=== PATIENT | female | born 1965 | race Caucasian/White ===

== ENCOUNTER → 2018-07-13 09:55 | Outpatient (CLI) | payer BC, SELFPAY ==
[2018-07-13 12:26] LABS: Anion Gap 10 (5-15); BUN 15 mg/dL (7-18); BUN/Creat Ratio 22.2 RATIO (10-20); Calcium,Total 9.4 mg/dL (8.5-10.1); Chloride 103 mmol/L (98-107); Creatinine, Serum 0.68 mg/dL (0.55-1.02); EST Glomerular Filtration Rate 97 mL/min (>60); Est Glom Filt Rate - Afr Amer 117 mL/min (>60); Glucose 90 mg/dL (74-106); Potassium 4.1 mmol/L (3.5-5.1); Sodium Level 143 mmol/L (136-145)
== END ==
PROVIDERS: Family Provider Family Medicine; PCP Family Medicine; Visit Provider Family Medicine
DX: I10 Essential (primary) hypertension (principal)
CPT/HCPCS: 36415; 80048

== ENCOUNTER → 2018-10-29 08:35 | Outpatient (CLI) | payer BC, SELFPAY ==
--- NOTE | 2018-10-29 08:38 | BI_ITS ---
MAMMOGRAPHY - BILATERAL SCREENING REASON FOR EXAM: Female, 53 years old. Routine annual screening examination. PERTINENT HISTORY: Non-contributory. TECHNIQUE: Digital bilateral breast shaan (3D mammographic acquisition) in the CC and MLO projections. 2-D mediolateral oblique (MLO) and craniocaudad (CC) views of both breasts were obtained. CAD: Full Field Digital Mammography with Computer Added Detection was performed. COMPARISON: Comparison is made with prior study dated September 24, 2017 and September 20, 2016. FINDINGS: Breast Composition: The breasts are heterogeneously dense, which may obscure small masses. There are no dominant masses or suspicious calcifications. Small bilateral benign-appearing axillary lymph nodes. No other significant abnormalities are identified. There has been no significant change since the prior study. BI/SCREENING MAMM (CAD), BILAT IMPRESSION: Stable bilateral screening mammogram. Yearly follow-up mammogram recommended. (A) ASSESSMENT CATEGORY: BIRADS Category 2: Benign. A letter regarding these results will be sent to the patient by the facility within 30 days. Approximately 10% of breast cancers are not detected by mammography. A normal mammogram should not delay biopsy of a clinically suspicious abnormality. [id number] Electronically Signed: Logan Mccormack MD at 9:40 EST Tel [phone], Service support ,
--- OUTSIDE RECORDS SUMMARY | 2018-12-15 01:48 | XMS RPT_ITS ---
:1965 Author Organization OHIP Support Name Relationship Address Phone PORTS, COLE Unavailable [address] + [place] [address] SANTANA, RUPERT Unavailable [address] + [place] [address] UE Unavailable Unavailable Unavailable PORTS, COLE Unavailable [address] + [place] [address] SANTANA, RUPERT Unavailable [address] + [place] [address] UE Unavailable Unavailable Unavailable PORTS, COLE Unavailable [address] + [place] [address] SANTANA, RUPERT Unavailable [address] + [place] [address] UE Unavailable Unavailable Unavailable PORTS, COLE Unavailable [address] + [place] [address] SANTANA, RUPERT Unavailable [address] + [place] [address] UE Unavailable Unavailable Unavailable PORTS, COLE Unavailable [address] + [place] [address] SANTANA, RUPERT Unavailable [address] + [place] [address] UE Unavailable Unavailable Unavailable PORTS, COLE Unavailable [address] + [place] [address] SANTANA, RUPERT Unavailable [address] + [place] [address] UE Unavailable Unavailable Unavailable PORTS, COLE Unavailable [address] + [place] [address] SANTANA, RUPERT Unavailable [address] + [place] [address] UE Unavailable Unavailable Unavailable Care Team Providers Name Role Phone Gerry, Christiana Attending Unavailable Jolliff, Jennifer Primary Care Unavailable Gerry, Christiana Attending Unavailable [place], Christiana Referring Unavailable Jolliff, Jennifer Primary Care Unavailable Gerry, Christiana Attending Unavailable Jolliff, Jennifer Referring Unavailable Robotham, Ashlyn Attending Unavailable Gerry, Christiana Referring Unavailable Robotham, Ashlyn Attending Unavailable Robotham, Ashlyn Referring Unavailable Jolliff, Jennifer Primary Care Unavailable Robotham, Ashlyn Attending Unavailable Robotham, Ashlyn Referring Unavailable Jolliff, Jennifer Primary Care Unavailable Robotham, Ashlyn Consulting Unavailable Jolliff, Jennifer Attending Unavailable Jolliff, Jennifer Primary Care Unavailable PROBLEMS PROBLEMS DATE TYPE CONDITION / CODE ATTENDING STATUS SOURCE 11/13/2018 Unknown N63.20 - Cherelle Active [place] Unspecified lump Ashlyn [facility] in the left Hospital breast, Repository unspecified quadrant / N63.20(ICD-10) PROCEDURES PROCEDURES No Procedure Records FoundRESULTS RESULTS OPERATIVE REPORT Observed: 11/13/2018 Status: F Source: [place] 12:40 PM [facility] REPOSITORY [facility] Medical Records Department [address] [place] [address] Operative Report 11/13/18 1020 MR#: [id number] Acct: [id number] Name: NAHOMY DILLON Rep #: [id number] : 1965 53 From: Ashlyn Villarreal MD PCP: Jennifer Colon MD Status: REG CLI Y Location: OPUS Operative Report Date of Procedure: 11/13/18 Procedure: ultrasound-guided core biopsy Indications: 53 year-old female with hypoechoic nodule at 8:00 in the left breast 5 centimeters from the nipple. Risk benefits were discussed the patient and she elected to proceed with ultrasound guided core biopsy with clip placement Description of procedure: Patient was brought into the ultrasound room in the left breast was marked. A timeout was completed verifying correct patient, procedure, site, specially, prior to beginning procedure. The left breast was prepped and draped in usual sterile fashion and using local anesthesia was obtained with 1% lidocaine with epi. The lesion was located with the ultrasound. Small incision was made with 11 blade to introduced the mammotome through the skin. Under ultrasound guidance multiple core samples were obtained using then 13-gauge mammotome and sent in formalin for pathology. The mammotome mammostar clip was then deployed into the biopsy cavity under ultrasound guidance and a picture was taken. Upon completion procedure hemostasis was obtained and a Steri-Strip and OpSite were placed. Patient was then taken to the mammography suite for clip verification. The clip was verified just posterior to biopsy site on CC view. The patient tolerated the procedure well and was discharged from the breast imaging department good condition. complications: none 11/13/18 1240 <Electronically signed by Ashlyn Villarreal MD> Date Ashlyn Villarreal MD CC: Jennifer Colon MD; Ashlyn Villarreal MD Signed US BREAST BIOPSY Observed: 11/13/2018 Status: F Source: [place] 1ST LESION 9:28 AM [facility] REPOSITORY [facility] Imaging Services [address] [place] [address] US Breast Biopsy 1st Lesion MR#: [id number] Acct: [id number] Name: NAHOMY DILLON Rep #: [id number] : 1965 F 53 From: Logan Mccormack MD PCP: Jennifer Colon MD Status: REG CLI Study: US Breast Biopsy 1st Lesion Date of Exam: 11/13/18 Exam# [id number] Ordering Dr: Ashlyn Villarreal MD ULTRASOUND GUIDED CORE BIOPSY REASON FOR EXAM: Female, 53 years old. Hypoechoic nodule in the left breast at the 8:00 position of the breast at 5 cm from the nipple. PERTINENT HISTORY: Non-contributory. COMPARISON: Comparison is made with prior ultrasound dated October 30, 2018. TECHNIQUE: (All elements of maximal sterile barrier technique followed, including US elements as applicable) Upon arrival to the breast imaging department the patient's identification was confirmed and the LEFT breast was marked according to time-out protocol. Ultrasound guided core biopsy and clip placement, to include potential risks and complications, was explained in full to the patient. Written and verbal consent were obtained prior to initiation of the procedure. The LEFT breast was prepped and draped in standard sterile fashion and local anesthesia was obtained with 1% buffered lidocaine. A small dermatotomy was then made to introduce the core biopsy needle. Under ultrasound guidance multiple core samples were obtained with a 11 gauge needle and submitted in formalin for pathology. A titanium clip was then deployed into the biopsy cavity under ultrasound guidance. Upon completion of the procedure hemostasis was obtained and sterile dressing was applied. The patient tolerated the entire procedure without immediate complication and was discharged from the breast imaging department in good condition. US/US Breast Biopsy 1st Lesion IMPRESSION: Ultrasound guided core biopsy of a mass in the LEFT breast at 8:00 position breast at 5 sinus from the nipple. without complication. An addendum to this report will be rendered with appropriate recommendations when the pathology report is finalized. Electronically Signed: Logan Mccormack MD at 8:48 EST Tel [phone], Service support , CC: Jennifer Colon MD; Ashlyn Villarreal MD Park Superintendent: Signed BREAST BIOPSY Observed: 11/13/2018 Status: F Source: [place] (CHOOSE SITE) 12:00 AM [facility] REPOSITORY Patient: NAHOMY DILLON : 1965 (53/F) Acct Num: [id number] Phys: Cherelle MONTEJO,Ashlyn Unit Num: [id number] Loc: OPUS Specimen: [id number] Received: 11/13/18 - 1436 Spec Type: BREAST BX TISSUES 1 TISSUES: Left breast, NOS COMMENT Correlation with clinical, radiologic findings and appropriate follow up are necessary. GROSS DESCRIPTION Received is one container labeled with the patient's name and not further designated. The specimen consists of multiple irregular fragments of light thompson- yellow soft tissue that in aggregate measure 2.5 x 1 x 0.1 cm. The specimen is totally submitted in one cassette. / AM:jose alejandro 11/13/18 TC:5 CPT: 01506 HEADER OPERATION: Left breast biopsy PRE-OP DIAGNOSIS: Left breast lesion TISSUE SUBMITTED: Left breast ISCHEMIC TIME: 2 minutes MICROSCOPIC DESCRIPTION Slides are reviewed. MICROSCOPIC DIAGNOSIS Left breast lesion, core biopsy: Fibrocystic changes. Negative for atypia or malignancy. SJ:jose alejandro 11/16/18 Signed Pavel Vargas MD 11/16/18 <signature on file> Performed By: #### PBRBX #### [facility] [address] [place], [address] SURGERY VISIT REPORT Observed: 11/05/2018 Status: F Source: [place] 9:00 AM [facility] REPOSITORY [facility] [address] [place] [address] OFFICE VISIT Date of Service: 11/03/18 MR#: [id number] Acct: [id number] Name: NAHOMY DILLON Rep #: [id number] : 1965 Provider: Ashlyn Villarreal MD Age/Sex: 53/F Location: [facility] Status: Signed Intake Vital Signs11/03/18 Body Mass Index (BMI) 26.5 11/03/18 Height 5 ft 4.5 in 11/03/18 Weight: 155 lb Intake Visit Reasons: Birads 4 Mammo AND US 10/30 [facility] Chief Complaint: est annual Portable Track Line Marker Required: No Is patient in pain?: No Allergies latex Allergy (Verified 11/03/18 14:38) Rash Medications Lisinopril [Prinivil] 5 mg PO DAILY 09/16/17 [History Confirmed 11/03/18] [facility] Medical History History of headache (Acute) uterine ablation (Acute) Hypertension (Chronic) Surgical History delivery delivered (Acute) H/O umbilical hernia repair (Acute) H/O ventral hernia repair (Acute) History of hysterectomy (Acute) Hx of cholecystectomy (Acute) Family History Mother Heart disease Osteoporosis Father Heart disease Grandmother Colon cancer Social History Smoking Status: Never smoker alcohol intake: current details: social substance use type: does not use caffeine: Yes what type of physical activity do you participate in: walking seatbelt use: always do you feel safe at home: Yes additional social history: [employer] Patient does not currently work HPI HPI HPI: NAHOMY DILLON, is a 53 F who presents to the office today for left breast mass/abnormal ultrasound-see report below. Patient denies feeling any masses or lumps in bilateral breast or have any changed overlying skin or nipple discharge or trauma to the breast. LEFT Breast: There is a 5 mm x 6 mm x 5 mm hypoechoic nodule at the 8:00 position in the breast at 5 cm from the nipple. A small cystic component is seen. A biopsy is recommended for further evaluation. US/Breast Limited Unilateral IMPRESSION: The mammographic abnormality corresponds to a 5 mm x 6 mm x 5 mm hypoechoic nodule at the 8:00 position breast at 5 cm from nipple. A small cystic component is seen. A biopsy is recommended for further evaluation. BI-RADS 4 Mary Lou model Age: 53 Age of menses: 10 Age at time of first child: 24 Family history of breast cancer: None Number of past breast biopsies: None Number breast biopsy showing atypical hyperplasia: N/A Race/ethnicity: 5 year risk 1.1% (average of 1.4%) Lifetime risk 8.4% (average 10.6%) ROS General General: Yes weight change; no fatigue, colon cancer, breast cancer or weakness Breast Breast: Yes abnormal mammogram and abnormal US; no breast enlargement, nipple discharge, breast pain, right breast lump or left breast lump Neuro Neurologic: No weakness Exam Const General: cooperative, comfortable, no acute distress Chest Chest palpation AND inspection: normal inspection of the chest Breast inspection: normal inspection of the breasts, normal inspection of the axillae Breast Palpation: No nipple discharge, Yes normal palpation of the axillae, Yes normal palpation of the breasts, Yes no axillary lymphadenopathy (Bilaterally), No breast mass, No change in skin, No supraclavicular (Bilaterally) Assessment AND Plan Problems 1. Mass of left breast N63.20 Plan I have discussed above with the patient. I have recommended ultrasound guided needle core breast biopsy with vacuum assistance. I have described the procedure to the patient. A marker clip will be placed to identify the location. Patient has been counseled to the risks/benefits of the procedure. I have explained the risks of the surgery, including but not limited to: infection, bleeding, injury to any blood vessels/nerves, scar tissue, missing the lesion, further surgery, etc. - the patient understands and agrees to proceed. I have answered all of the patient's questions to her satisfaction and she has no further questions. Ashlyn Villarreal M.D. Pager: [phone] [facility] [address] [place] [address], [address] [place] [address] Office: [phone] Orders Orders: Plan Detail Follow Up We will schedule breast biopsy Coding Level of Care Code Off vis,est,level 4 Diagnoses Mass of left breast N63.20 Time Spent (min) 25 11/05/18 0900 <Electronically signed by Ashlyn Villarreal MD> Date Ashlyn Villarreal MD Cosigner Signature: Date (if applicable) CC: GURWINDER Garrett; Jennifer Colon MD [facility]ONWEALTH ATTORNEY OFFICE VISIT Observed: 11/03/2018 Status: F Source: [place] REPORT 9:10 AM [facility] REPOSITORY [facility] [address] [place] [address] OFFICE VISIT Date of Service: 11/03/18 MR#: [id number] Acct: [id number] Name: SANTANANAHOMY BRITO Mark Rep #: [id number] : 1965 Provider: GURWINDER Garrett Age/Sex: 53/F [place] [facility] Status: Signed Intake Vital Signs11/03/18 Height 5 ft 4.5 in 11/03/18 Weight: 157 lb 11/03/18 Body Mass Index (BMI) 26.5 11/03/18 Blood Pressure 140/82 H Intake Visit Reasons: ANNUAL Chief Complaint: est annual Portable Track Line Marker Required: No Is patient in pain?: No Allergies latex Allergy (Verified 11/03/18 08:45) Rash Medications Lisinopril [Prinivil] 5 mg PO DAILY 09/16/17 [History Confirmed 11/03/18] Is last menstrual period known: No Post menopausal: Yes Patient : No : No PFSH Medical History History of headache (Acute) uterine ablation (Acute) Hypertension (Chronic) Surgical History delivery delivered (Acute) H/O umbilical hernia repair (Acute) H/O ventral hernia repair (Acute) History of hysterectomy (Acute) Hx of cholecystectomy (Acute) Family History Mother Heart disease Osteoporosis Father Heart disease Grandmother Colon cancer Social History Smoking Status: Never smoker alcohol intake: current details: social substance use type: does not use caffeine: Yes what type of physical activity do you participate in: walking seatbelt use: always do you feel safe at home: Yes additional social history: [employer] Patient does not currently work Pregancy History 5 Elective abortions Hx Para 2 Spontaneous abortions Past Pregnancies Del. DatName GA/WeeksOutcome [facility]t en tn Unknown 1988 Radha ly Unknown 1992 José h HPI ANNUAL: Details: NAHOMY DILLON is a 53 year old who presents for annual exam. Has appt today with Dr. Villarreal for abnormal mammogram. Feeling stressed over that. History of abnormal PAP: no Last mammogram: 10/29/18 History of abnormal mammogram: yes, pending Colon cancer screenin Female Reproductive History Questions: Metorrhagia: No, Sexually active: Yes, Dyspareunia: No, PCB: No Menopausal Treatment: Yes OTC treatments (coconut oil for vaginal dryness) ROS Const Constitutional: Denies fatigue, weight gain or weight loss Cardio Card: Denies chest pain Resp Resp: Denies cough or shortness of breath with activity GI GI: Denies abdominal pain, constipation, change in stools, vomiting or bloating : Reports as per HPI; denies urinary frequency, pelvic pain, urinary urgency, vaginal discharge, vaginal itching, urinary incontinence or difficulty urinating Exam Const General: cooperative, healthy appearing, no acute distress, well developed Orientation: alert, oriented to person, oriented to place [facility] Head: normal to inspection Neck Neck: normal visual inspection Thyroid: thyroid normal Lymphatic: no lymphadenopathy noted Chest Breast inspection: normal inspection of the breasts, normal inspection of the axillae Breast palpation: normal palpation of the breasts, normal palpation of the axillae, no axillary lymphadenopathy Resp Effort AND Inspection: normal respiratory effort GI Palpation: soft, nontender, no masses Rectal Exam: deferred External Female Exam: normal appearance of the urethra, other (atrophic ) Urethra: normal appearance of the urethra, normal palpation Speculum Exam - Vagina: atrophic vaginal mucosa (minimal discharge. Petechia noted) Speculum Exam - Cervix: cervix absent Bimanual Exam- Vagina AND Uterus: normal bimanual exam, uterus absent Bimanual Exam- Adnexa, other: normal adnexae, no adnexal masses, adnexae non-tender, pelvic support normal Pelvic Support: normal Neuro General: alert, oriented x3 Psych Affect: normal affect Assessment AND Plan Problems 1. Encounter for gynecological examination with abnormal finding Z01.411 2. Abnormal mammogram of left breast R92.8 3. Atrophic vaginitis N95.2 Plan Completed breast and pelvic exam Reviewed diet and exercise Pap NA Mammogram left abnormal and see Dr. Villarreal today Colonoscopy 2017 Reviewed oral coconut oil and external use. Consider estrogen cream if negative breast evaluation. RTO 1 year, prn with problems Christiana Garrett ARCHITECTURAL WOOD MODEL MAKER Coding Level of Care Code Off vis,est,prev 40-64yrs Diagnoses Encounter for gynecological examination with abnormal finding Z01.411 Gynecological examination findings: abnormal findings PRESENT Abnormal mammogram of left breast R92.8 Atrophic vaginitis N95.2 11/03/18 0927 <Electronically signed by Christiana NAQVI> Date Christiana NAQVI Cosigner Signature: Date (if applicable) CC: DIAG MAMM W/CAD, Observed: 10/30/2018 Status: F Source: [place] UNIL 2:21 PM [facility] REPOSITORY [facility] Imaging Services [address] [place] [address] DIAG MAMM W/CAD, UNILAT MR#: [id number] Acct: [id number] Name: NAHOMY DILLON Rep #: [id number] : 1965 F 53 From: Logan Mccormack MD PCP: Jennifer Colon MD Status: REG CLI Study: DIAG MAMM W/CAD, UNILAT Date of Exam: 10/30/18 Exam# [id number] Ordering Dr: Christiana Garrett BEADING MACHINE OPERATOR-Earl MAMMOGRAPHY - UNILATERAL DIAGNOSTIC: LEFT BREAST REASON FOR EXAM: Female, 53 years old. Abnormal screening mammogram. PERTINENT HISTORY: Non-contributory. TECHNIQUE: Compression spot view in the craniocaudad projection as well as 90 degree lateral view of the left breast were obtained. CAD: Full Field Digital Mammography with Computer Added Detection was performed. COMPARISON: Comparison is made with prior mammogram dated October 29, 2018. FINDINGS: Breast Composition: The breasts are heterogeneously dense, which may obscure small masses. The previously seen asymmetrical density in the deep central portion of the left breast on the craniocaudad view is not well seen at this time. Correlation with ultrasound is recommended. No other significant abnormalities are identified. BI/DIAG MAMM W/CAD, UNILAT IMPRESSION: The previously seen questionable abnormality in the central deep portion of the left breast is not well seen at this time. Correlation with ultrasound is recommended. ASSESSMENT CATEGORY: BIRADS Category 0: Incomplete. Need additional imaging evaluation. A letter regarding these results will be sent to the patient by the facility within 30 days. Approximately 10% of breast cancers are not detected by mammography. A normal mammogram should not delay biopsy of a clinically suspicious abnormality. Electronically Signed: Logan Mccormack MD at 15:33 EST Tel [phone], Service support , CC: GURWINDER Garrett; Jennifer Colon MD Park Superintendent: Signed BREAST LIMITED Observed: 10/30/2018 Status: F Source: [place] UNILATERAL 2:21 PM [facility] REPOSITORY [facility] Imaging Services [address] [place] [address] Breast Limited Unilateral MR#: [id number] Acct: [id number] Name: NAHOMY DILLON Rep #: [id number] : 1965 F 53 From: Logan Mccormack MD PCP: Jennifer Colon MD Status: REG CLI Study: Breast Limited Unilateral Date of Exam: 10/30/18 Exam# [id number] Ordering Dr: Christiana Garrett BEADING MACHINE OPERATOR-C STUDY: ULTRASOUND BREAST - LEFT REASON FOR EXAM: Female, 53 years old. Abnormal screening mammogram. TECHNIQUE: Axial and longitudinal images of the LEFT breast were performed with a high resolution ultrasound transducer. COMPARISON: Comparison is made with prior mammogram dated October 30, 2018 and October 29, 2018. FINDINGS: LEFT Breast: There is a 5 mm x 6 mm x 5 mm hypoechoic nodule at the 8:00 position in the breast at 5 cm from the nipple. A small cystic component is seen. A biopsy is recommended for further evaluation. US/Breast Limited Unilateral IMPRESSION: The mammographic abnormality corresponds to a 5 mm x 6 mm x 5 mm hypoechoic nodule at the 8:00 position breast at 5 cm from nipple. A small cystic component is seen. A biopsy is recommended for further evaluation. ASSESSMENT CATEGORY: BIRADS Category 4: Suspicious - Biopsy Should Be Considered. A letter regarding these results will be sent to the patient by the facility within 30 days. Electronically Signed: Logan Mccormack MD at 15:53 EST Tel [phone], Service support , CC: GURWINDER Garrett; Jennfier Colon MD Park Superintendent: Signed SCREENING MAMM (CAD), Observed: 10/29/2018 Status: F Source: [place] BILAT 8:38 AM [facility] REPOSITORY [facility] Imaging Services [address] [place] [address] SCREENING MAMM (CAD), BILAT MR#: [id number] Acct: [id number] Name: NAHOMY DILLON Rep #: [id number] : 1965 F 53 From: Logan Mccormack MD PCP: Jennifer Colon MD Status: REG CLI Study: SCREENING MAMM (CAD), BILAT Date of Exam: 10/29/18 Exam# [id number] Ordering Dr: Christiana Garrtet BEADING MACHINE OPERATOR-C ADDENDUM by Logan Mccormack MD on 10/29/18 at 1238 ADDENDUM This is an addendum report. There is a 7.5 mm x 5.8 mm nodule seen in the deep portion of the left breast on the craniocaudad view. The patient will be recalled for additional views including compression spot views and 90 degree lateral view. Electronically Signed: Logan Mccormack MD at 12:38 EST Tel [phone], Service support , 10/29/18 1238 Date cc: BEADING MACHINE OPERATOR Christiana Garrett; Jennifer Colon MD * Signed ADDENDUM by Logan Mccormack MD on 10/29/18 at 1238 BI/SCREENING MAMM (CAD), BILAT 10/29/18 1245 Date cc: BEADING MACHINE OPERATOR Christianaclaudia Garrett; Jennifer Colon MD * Signed MAMMOGRAPHY - BILATERAL SCREENING REASON FOR EXAM: Female, 53 years old. Routine annual screening examination. PERTINENT HISTORY: Non-contributory. TECHNIQUE: Digital bilateral breast shaan (3D mammographic acquisition) in the CC and MLO projections. 2-D mediolateral oblique (MLO) and craniocaudad (CC) views of both breasts were obtained. CAD: Full Field Digital Mammography with Computer Added Detection was performed. COMPARISON: Comparison is made with prior study dated September 24, 2017 and September 20, 2016. FINDINGS: Breast Composition: The breasts are heterogeneously dense, which may obscure small masses. There are no dominant masses or suspicious calcifications. Small bilateral benign-appearing axillary lymph nodes. No other significant abnormalities are identified. There has been no significant change since the prior study. BI/SCREENING MAMM (CAD), BIL IMPRESSION: Stable bilateral screening mammogram. Yearly follow-up mammogram recommended. (A) ASSESSMENT CATEGORY: BIRADS Category 2: Benign. A letter regarding these results will be sent to the patient by the facility within 30 days. Approximately 10% of breast cancers are not detected by mammography. A normal mammogram should not delay biopsy of a clinically suspicious abnormality. [id number] Electronically Signed: Logan Mccormack MD at 9:40 EST Tel [phone], Service support , CC: GURWINDER Garrett; Jennifer Colon MD Park Superintendent: Signed BASIC METABOLIC Collected: 07/13/2018 Status: F Source: [place] PROFILE (BMP) 9:59 AM [facility] REPOSITORY TYPE CODE TESTS RESULT OUT OF RANGE REFERENCE UNITS LAB L501.0100 74-106 mg/dL Normal GLU 90 Result Comment: Please note revised GLUCOSE reference range effective 2017. LAB L501.1000 7-18 mg/dL Normal BUN 15 LAB L501.1100 0.55-1.02 mg/dL Normal CREAT,SERUM 0.68 Result Comment: The validity of the calculated GFR AND GFRAA in patients over 70 years has not been determined. Clinical correlation is essential. LAB L501.1110 >60 mL/min Normal EST GFR 97 Result Comment: Non- GFR Calc LAB L501.1115 >60 mL/min Normal EST GFR - AA 117 Result Comment: GFR Calc LAB L501.1300 10-20 RATIO High BUN/CRE 22.2 LAB L501.2200 8.5-10.1 mg/dL CA Normal 9.4 LAB L501.5300 136-145 mmol/L NA Normal 143 LAB L501.5600 3.5-5.1 mmol/L K Normal 4.1 LAB L501.5900 98-107 mmol/L CL Normal 103 LAB L501.6100 21.0-32.0 mmol/L Normal CO2 30.0 LAB L501.6200 5-15 Normal GAP 10 Performed By: #### L500.2500 #### [facility] [address] [place], [address] ALLERGIES ALLERGIES DATE TYPE / CODE NAME / CODE REACTION SEVERITY SOURCE 11/03/2018 Drug latex/W09093 Rash Unknown [facility] Allergy/4160 8921(RXNORM) [facility] [address](SNOMED Repository CT) ENCOUNTERS ENCOUNTERS ADMIT/DISCHARGE ACCOUNT ADMITTING ENCOUNTER LOCATION SOURCE NUMBER CLASS 11/13/2018 [id number] Ambulatory BMSBuilding:B [place] 0 MS.CF.WSA [facility] Repository 11/13/2018 [id number] Ambulatory [place] Michael 1 [facility] ing:OPUS Repository 11/03/2018/ [id number] Ambulatory BMSBuilding:B [place] 8 6 MS.A [facility] Repository 11/03/2018/ [id number] Ambulatory BMSBuilding:B [place] 8 0 MS.[facility] Repository 10/30/2018 [id number] Ambulatory [place] Michael 9 [facility] ing:OPBI Repository 10/29/2018 [id number] Ambulatory [place] 7 [facility] ing:OPBI Repository 07/13/2018 [id number] Ambulatory [place] Michael 8 [facility] ing:MFPLAB Repository PAYERS PAYERS ENCOUNTER GUARANTOR PAYER SUBSCRIBER SOURCE 11/13/2018 NAHOMY Flores Jud MILLER Rodriguez [id number] RONN Insurance:ANTHEMPolic [place] Number: [id number] Hospital 87640Yji: 330 [id number] Repository [phone] () Date:3112-85-62UN [address] [place] [address] 12364HH: 11/13/2018 Secondary NOT GIVENUNK [place] Insurance:SELF PAY [facility] Number: Effective Repository Date:2018-11-13 11/13/2018 NAHOMY Flores Jud MILLER Rodriguez [id number] RONN Insurance:ANTHEMPolic [place]: [place] Number: [id number] Hospital 85723Lgz: (330) [id number] Repository [phone] () Date:3785-04-63CT [address], [place] [address]TA: 11/13/2018 Secondary NOT GIVENUNK [place] Insurance:SELF PAY [facility] Number: Effective Repository Date:2018-11-03 11/03/2018 NAHOMY Flores Jud MILLER Rodriguez [id number] RONN Insurance:ANTHEMPolic [place]: [place] Number: [id number] Hospital 88902Sxi: (330) [id number] Repository [phone] () Date:6274-25-33LN [address] [place] [address] 13654KE: 11/03/2018 Secondary NOT GIVENUNK [place] Insurance:SELF PAY [facility] Number: Effective Repository Date:2018-11-02 11/03/2018 NAHOMY Flores Primary MILLER Rodriguez [id number] RONN Insurance:ANTHEMPolic TOTTENDOB: [facility] [place] Number: [id number] Hospital [address]Osk: (330) [id number] Repository [phone] () Date:5900-92-81ZB [address] [place] [address] 62350JL: 11/03/2018 Secondary NOT GIVENUNK [place] Insurance:SELF PAY [facility] Number: Effective Repository Date:2018-11-03 10/30/2018 NAHOMY Flores Primary MILLER Rodriguez [id number] RONN Insurance:ANTHEMPolic TOTTENDOB: [facility] [place] Number: [id number] Hospital 318[address]Dlu: (330) [id number] Repository [phone] () Date:9881-61-44EY [address] [place] [address] 12246LT: 10/30/2018 Secondary NOT GIVENUNK [place] Insurance:SELF PAY [facility] Hospital Number: Effective Repository Date:2018-10-30 10/29/2018 NAHOMY Flores Primary MILLER Rodriguez [id number] [place] Insurance:ANTHEMPolic [place]OB: [facility] [place] Number: [id number] Hospital 38155Czy: (330) [id number] Repository [phone] () Date:8006-60-74OC [address] [place] [address] 83869RQ: 10/29/2018 Secondary NOT GIVENUNK [place] Insurance:SELF PAY [facility] Hospital Number: Effective Repository Date:2018-09-14 07/13/2018 Nahomy Flores Primary Miller Rodriguez [id number] [place] Insurance:ANTHEMPolic [place]: [id number] [facility] 23137Flh: (590) [id number] Repository [phone] () Date:8439-91-59SI [address], [place] [address]XB: 07/13/2018 Secondary NOT GIVENUNK [place] Insurance:SELF PAY [facility] Number: Effective Repository Date:2018-07-13
== END ==
PROVIDERS: Family Provider Family Medicine; PCP Family Medicine; Visit Provider Nurse Practitioner Women's Health
DX: Z12.31 Encounter for screening mammogram for malignant neoplasm of breast (principal)
CPT/HCPCS: 77063; 77067

== ENCOUNTER → 2018-10-30 14:18 | Outpatient (CLI) | payer BC, SELFPAY ==
--- NOTE | 2018-10-30 14:20 | BI_ITS ---
MAMMOGRAPHY - UNILATERAL DIAGNOSTIC: LEFT BREAST REASON FOR EXAM: Female, 53 years old. Abnormal screening mammogram. PERTINENT HISTORY: Non-contributory. TECHNIQUE: Compression spot view in the craniocaudad projection as well as 90 degree lateral view of the left breast were obtained. CAD: Full Field Digital Mammography with Computer Added Detection was performed. COMPARISON: Comparison is made with prior mammogram dated October 29, 2018. FINDINGS: Breast Composition: The breasts are heterogeneously dense, which may obscure small masses. The previously seen asymmetrical density in the deep central portion of the left breast on the craniocaudad view is not well seen at this time. Correlation with ultrasound is recommended. No other significant abnormalities are identified. BI/DIAG MAMM W/CAD, UNILAT IMPRESSION: The previously seen questionable abnormality in the central deep portion of the left breast is not well seen at this time. Correlation with ultrasound is recommended. ASSESSMENT CATEGORY: BIRADS Category 0: Incomplete. Need additional imaging evaluation. A letter regarding these results will be sent to the patient by the facility within 30 days. Approximately 10% of breast cancers are not detected by mammography. A normal mammogram should not delay biopsy of a clinically suspicious abnormality. Electronically Signed: Logan Mccormack MD at 15:33 EST Tel [phone], Service support ,
--- NOTE | 2018-10-30 14:21 | US_ITS ---
STUDY: ULTRASOUND BREAST - LEFT REASON FOR EXAM: Female, 53 years old. Abnormal screening mammogram. TECHNIQUE: Axial and longitudinal images of the LEFT breast were performed with a high resolution ultrasound transducer. COMPARISON: Comparison is made with prior mammogram dated October 30, 2018 and October 29, 2018. FINDINGS: LEFT Breast: There is a 5 mm x 6 mm x 5 mm hypoechoic nodule at the 8:00 position in the breast at 5 cm from the nipple. A small cystic component is seen. A biopsy is recommended for further evaluation. US/Breast Limited Unilateral IMPRESSION: The mammographic abnormality corresponds to a 5 mm x 6 mm x 5 mm hypoechoic nodule at the 8:00 position breast at 5 cm from nipple. A small cystic component is seen. A biopsy is recommended for further evaluation. ASSESSMENT CATEGORY: BIRADS Category 4: Suspicious - Biopsy Should Be Considered. A letter regarding these results will be sent to the patient by the facility within 30 days. Electronically Signed: Logan Mccormack MD at 15:53 EST Tel [phone], Service support ,
--- OUTSIDE RECORDS SUMMARY | 2019-02-03 05:42 | XMS RPT_ITS ---
:1965 Author Organization OHIP Support Name Relationship Address Phone PORTS, COLE Unavailable [address] + [place] [address] SANTANA, RUPERT Unavailable [address] + [place] [address] UE Unavailable Unavailable Unavailable PORTS, COLE Unavailable [address] + [place] [address] SANTANA, RUPERT Unavailable [address] + [place] [address] UE Unavailable Unavailable Unavailable PORTS, COLE Unavailable [address] + [place] [address] SANTANA, RUPERT Unavailable [address] + [place] [address] UE Unavailable Unavailable Unavailable PORTS, COLE Unavailable [address] + [place] [address] SANTANA, RUPERT Unavailable [address] + [place] [address] UE Unavailable Unavailable Unavailable PORTS, COLE Unavailable [address] + [place] [address] SANTANA, RUPERT Unavailable [address] + [place] [address] UE Unavailable Unavailable Unavailable PORTS, COLE Unavailable [address] + [place] [address] SANTANA, RUPERT Unavailable [address] + [place] [address] UE Unavailable Unavailable Unavailable PORTS, COLE Unavailable [address] + [place] [address] SANTANA, RUPERT Unavailable [address] + [place] [address] UE Unavailable Unavailable Unavailable Care Team Providers Name Role Phone Gerry, Christiana Attending Unavailable Jolliff, Jennifer Primary Care Unavailable Gerry, Christiana Attending Unavailable [place], Christiana Referring Unavailable Jolliff, Jennifer Primary Care [...] - Cherelle Active Michael Unspecified lump Ashlyn [facility] in the left Hospital breast, Repository unspecified quadrant / N63.20(ICD-10) PROCEDURES PROCEDURES No Procedure Records FoundRESULTS RESULTS OPERATIVE REPORT Observed: 11/13/2018 Status: F Source: [place] 12:40 PM [facility] REPOSITORY [facility] Medical Records Department [address] [place] [address] Operative Report 11/13/18 1020 MR#: [id number] Acct: [id number] Name: NAHOMY DILLON Rep #: [id number] : 1965 53 From: Ashlyn Villarreal MD [...] F Source: [place] 1ST LESION 9:28 AM [facility] REPOSITORY [facility] Imaging Services [address] [place] [address] US Breast Biopsy 1st Lesion MR#: [id number] Acct: [id number] Name: NAHOMY DILLON Rep #: [id number] : 1965 F 53 From: Logan Mccormack MD PCP: Jennifer Colon MD Status: REG CLI Study: US Breast Biopsy 1st Lesion Date of Exam: 11/13/18 Exam# [id number] Ordering Dr: Ashlyn Villarreal MD ULTRASOUND GUIDED [...] Logan Mccormack MD at 8:48 EST Tel [phone], Service support , CC: Jennifer Colon MD; Ashlyn Villarreal MD Weed Inspector: Signed BREAST BIOPSY Observed: 11/13/2018 Status: F Source: [place] (CHOOSE SITE) 12:00 AM [facility] REPOSITORY Patient: NAHOMY DILLON : 1965 (53/F) Acct Num: [id number] Phys: Cherelle MONTEJO,Ashlyn Unit Num: [id number] Loc: OPUS Specimen: [id number] Received: 11/13/18 - 1436 Spec Type: BREAST [...] cassette. / AM:jose alejandro 11/13/18 TC:5 CPT: 46021 HEADER OPERATION: Left breast biopsy PRE-OP DIAGNOSIS: Left breast lesion TISSUE SUBMITTED: Left breast ISCHEMIC TIME: 2 minutes MICROSCOPIC DESCRIPTION Slides are reviewed. MICROSCOPIC DIAGNOSIS Left breast lesion, core biopsy: Fibrocystic changes. Negative for atypia or malignancy. SJ:jose alejandro 11/16/18 Signed Pavle Vargas MD 11/16/18 <signature on file> Performed By: #### PBRBX #### [facility] [address] [place], [address] SURGERY VISIT REPORT Observed: 11/05/2018 Status: F Source: [place] 9:00 AM [facility] REPOSITORY [facility] [address] [place] [address] OFFICE VISIT Date of Service: 11/03/18 MR#: [id number] Acct: [id number] Name: NAHOMY DILLON Rep #: [id number] : 1965 Provider: Ashlyn Villarreal MD Age/Sex: 53/F Location: [facility] Status: Signed Intake Vital Signs11/03/18 Body Mass Index (BMI) 26.5 11/03/18 Height 5 ft 4.5 in 11/03/18 Weight: 155 lb Intake Visit Reasons: Birads 4 Mammo AND US 10/30 [facility] Chief Complaint: est annual Liquid Sugar Melter Required: No Is patient in pain?: No Allergies latex Allergy (Verified 11/03/18 14:38) Rash Medications Lisinopril [Prinivil] 5 mg PO DAILY 09/16/17 [History Confirmed 11/03/18] [facility] Medical History History of headache (Acute) uterine [...] no further questions. Ashlyn Villarreal M.D. Pager: [phone] [facility] [address] [place] [address], [address] [place] [address] Office: [phone] Orders Orders: Plan Detail Follow Up We will schedule breast biopsy Coding Level of Care Code Off vis,est,level 4 Diagnoses Mass of left breast N63.20 Time Spent (min) 25 11/05/18 0900 <Electronically signed by Ashlyn Villarreal MD> Date Ashlyn Villarreal MD Cosigner Signature: Date (if applicable) CC: GURWINDER Garrett; Jennifer Colon MD ICE SKATING TEACHER OFFICE VISIT Observed: 11/03/2018 Status: F Source: [place] REPORT 9:10 AM [facility] REPOSITORY [facility] [address] [place] [address] OFFICE VISIT Date of Service: 11/03/18 MR#: [id number] Acct: [id number] Name: SANTANANAHOMY BRITO Mark Rep #: [id number] : 1965 Provider: GURWINDER Garrett Age/Sex: 53/F Location[place] [facility] Status: Signed Intake Vital Signs11/03/18 Height 5 ft 4.5 in 11/03/18 Weight: 157 lb 11/03/18 Body Mass Index (BMI) 26.5 11/03/18 Blood Pressure 140/82 H Intake Visit Reasons: ANNUAL Chief Complaint: est annual Liquid Sugar Melter Required: No Is patient in pain?: No [...] safe at home: Yes additional social history: [employer] Patient does not currently work Pregancy History 5 Elective abortions Hx Para 2 Spontaneous abortions Past Pregnancies Del. DatName [place]/WeeksOutcome Route [facility] LocaProviderFOB e ht en tn Unknown 1988 [...] alert, oriented to person, oriented to place [facility] Head: normal to inspection Neck Neck: normal [...] 1 year, prn with problems Christiana Garrett ENGRAVER WOOD Coding Level of Care Code Off vis,est,prev 40-64yrs Diagnoses Encounter for gynecological examination with abnormal finding Z01.411 Gynecological examination findings: abnormal findings PRESENT Abnormal mammogram of left breast R92.8 Atrophic vaginitis N95.2 11/03/18 0968 <Electronically signed by Christiana NAQVI> Date Christiana NAQVI Cosigner Signature: Date (if applicable) CC: DIAG MAMM W/CAD, Observed: 10/30/2018 Status: F Source: [place] UNIL 2:21 PM [facility] REPOSITORY [facility] Imaging Services [address] [place] [address] DIAG MAMM W/CAD, UNILAT MR#: [id number] Acct: [id number] Name: NAHOMY DILLON Rep #: [id number] : 1965 F 53 From: Logan Mccormack MD PCP: Jennifer Colon MD Status: REG CLI Study: DIAG MAMM W/CAD, UNILAT Date of Exam: 10/30/18 Exam# [id number] Ordering Dr: Christiana Garrett THERMOSTAT REPAIRER-Earl MAMMOGRAPHY - UNILATERAL DIAGNOSTIC: LEFT BREAST REASON [...] Logan Mccormack MD at 15:33 EST Tel [phone], Service support , CC: GURWINDER Garrett; Jennifer Colon MD Weed Inspector: Signed BREAST LIMITED Observed: 10/30/2018 Status: F Source: [place] UNILATERAL 2:21 PM [facility] REPOSITORY [facility] Imaging Services [address] [place] [address] Breast Limited Unilateral MR#: [id number] Acct: [id number] Name: NAHOMY DILLON Rep #: [id number] : 1965 F 53 From: Logan Mccormack MD PCP: Jennifer Colon MD Status: REG CLI Study: Breast Limited Unilateral Date of Exam: 10/30/18 Exam# [id number] Ordering Dr: Christiana Garrett THERMOSTAT REPAIRER-C STUDY: ULTRASOUND BREAST - LEFT REASON FOR [...] Logan Mccormack MD at 15:53 EST Tel [phone], Service support , CC: GURWINDER Garrett; Jennifer Colon MD Weed Inspector: Signed SCREENING MAMM (CAD), Observed: 10/29/2018 Status: F Source: [place] BILAT 8:38 AM [facility] REPOSITORY [facility] Imaging Services [address] [place] [address] SCREENING MAMM (CAD), BILAT MR#: [id number] Acct: [id number] Name: NAHOMY DILLON Rep #: [id number] : 1965 F 53 From: Logan Mccormack MD PCP: Jennifer Colon MD Status: REG CLI Study: SCREENING MAMM (CAD), BILAT Date of Exam: 10/29/18 Exam# [id number] Ordering Dr: Christiana Garrett THERMOSTAT REPAIRER-C ADDENDUM by Logan Mccormack MD on 10/29/18 at 1238 ADDENDUM This is an addendum report. There is a 7.5 mm x 5.8 mm nodule seen in the deep portion of the left breast on the craniocaudad view. The patient will be recalled for additional views including compression spot views and 90 degree lateral view. Electronically Signed: Logan Mccormack MD at 12:38 EST Tel [phone], Service support , 10/29/18 1238 Date cc: THERMOSTAT REPAIRER Christiana Garrett; Jennifer Colon MD * Signed ADDENDUM by Logan Mccomrack MD on 10/29/18 at 1238 BI/SCREENING MAMM (CAD), BILAT 10/29/18 1245 Date cc: THERMOSTAT REPAIRER Christianaclaudia Garrett; Jennifer Colon MD * Signed [...] delay biopsy of a clinically suspicious abnormality. [id number] Electronically Signed: Logan Mccormack MD at 9:40 EST Tel [phone], Service support , CC: GURWINDER Garrett; Jennifer Colon MD Weed Inspector: Signed BASIC METABOLIC Collected: 07/13/2018 Status: F Source: [place] PROFILE (BMP) 9:59 AM [facility] REPOSITORY TYPE CODE TESTS RESULT OUT OF [...] GAP 10 Performed By: #### L500.2500 #### [facility] [address] [place], [address] ALLERGIES ALLERGIES DATE TYPE / CODE NAME / CODE REACTION SEVERITY SOURCE 11/03/2018 Drug latex/O28983 Rash Unknown [facility] Allergy/4160 8921(RXNORM) [facility] [address](SNOMED Repository CT) ENCOUNTERS ENCOUNTERS ADMIT/DISCHARGE ACCOUNT ADMITTING ENCOUNTER LOCATION SOURCE NUMBER CLASS 11/13/2018 [id number] Ambulatory BMSBuilding:B [place] 0 MS.CF.WSA [facility] Repository 11/13/2018 [id number] Ambulatory [place] Michael 1 [facility] ing:OPUS Repository 11/03/2018/ [id number] Ambulatory BMSBuilding:B [place] 8 6 MS.A [facility] Repository 11/03/2018/ [id number] Ambulatory BMSBuilding:B [place] 8 0 MS.[facility] Repository 10/30/2018 [id number] Ambulatory [place] Michael 9 [facility] ing:OPBI Repository 10/29/2018 [id number] Ambulatory [place] 7 [facility] ing:OPBI Repository 07/13/2018 [id number] Ambulatory [place] Michael 8 [facility] ing:MFPLAB Repository PAYERS PAYERS ENCOUNTER GUARANTOR PAYER SUBSCRIBER SOURCE 11/13/2018 NAHOMY Flores Jud MILLER Rodriguez [id number] RONN Insurance:ANTHEMPolic [place]: [place] Number: [id number] Hospital [address]Cyp: 330 [id number] Repository [phone] () Date:9858-39-62SL [address] [place] [address] 20115OQ: 11/13/2018 Secondary NOT GIVENUNK [place] Insurance:SELF PAY [facility] Number: Effective Repository Date:2018-11-13 11/13/2018 NAHOMY Flores Jud MILLER Rodriguez [id number] RONN Insurance:ANTHEMPolic [place]: [place] Number: [id number] Hospital 117[address]Cfl: (330) [id number] Repository [phone] () Date:9160-09-72YE [address], [place] [address]DI: 11/13/2018 Secondary NOT GIVENUNK [place] Insurance:SELF PAY [facility] Number: Effective Repository Date:2018-11-03 11/03/2018 NAHOMY Flores Jud MILLER Rodriguez [id number] RONN Insurance:ANTHEMPolic [place]: [place] Number: [id number] Hospital 6[address]Iur: (330) [id number] Repository [phone] () Date:8779-80-62NJ [address] [place] [address] 18726PJ: 11/03/2018 Secondary NOT GIVENUNK [place] Insurance:SELF PAY [facility] Number: Effective Repository Date:2018-11-02 11/03/2018 NAHOMY Flores Primary MILLER Rodriguez [id number] RONN Insurance:ANTHEMPolic TOTTENDOB: [facility] [place] Number: [id number] Hospital [address]Kuw: (330) [id number] Repository [phone] () Date:2982-18-18PC [address] [place] [address] 039[address]NP: 11/03/2018 Secondary NOT GIVENUNK [place] Insurance:SELF PAY [facility] Number: Effective Repository Date:2018-11-03 10/30/2018 NAHOMY Flores Primary MILLER Rodriguez [id number] RON[place] Insurance:ANTHEMPolic TOTTENDOB: [facility] [place] Number: [id number] Hospital 48[address]Kdd: (330) [id number] Repository [phone] () Date:7828-19-86BI [address] [place] [address] 765[address]XM: 10/30/2018 Secondary NOT GIVENUNK [place] Insurance:SELF PAY [facility] Number: Effective Repository Date:2018-10-30 10/29/2018 NAHOMY Flores Primary MILLER Rodriguez [id number] [place] Insurance:ANTHEMPolic [place]ENDOB: [facility] [place] Number: [id number] Hospital 376[address]Asx: (330) [id number] Repository [phone] () Date:8974-88-02QN [address] [place] [address] 72031IP: 10/29/2018 Secondary NOT GIVENUNK [place] Insurance:SELF PAY [facility] Number: Effective Repository Date:2018-09-14 07/13/2018 Nahomy Flores Primary Miller Rodriguez [id number] [place] Insurance:ANTHEMPolic [place]: [place]: [id number] [facility] 235[address]Gzr: (240) [id number] Repository [phone] () Date:6164-90-78FH [address], [place] [address]SN: 07/13/2018 Secondary NOT GIVENUNK [place] Insurance:SELF PAY [facility] Number: Effective Repository Date:2018-07-13
== END ==
PROVIDERS: Family Provider Family Medicine; PCP Family Medicine; Referring Provider Nurse Practitioner Women's Health; Visit Provider Nurse Practitioner Women's Health
DX: N63.0 Unspecified lump in unspecified breast (principal)
CPT/HCPCS: 76642; 77065

== ENCOUNTER → 2018-11-13 09:26 | Outpatient (CLI) | payer BC, SELFPAY ==
[2018-11-03 14:39] VITALS: BMI 26.5
--- NOTE | 2018-11-13 | BRBX_PTH ---
PATIENT: NAHOMY DILLON LOC: [facility] U#:[id number] AGE/SX: 60/F ROOM: RE11/13/[address]: Dr. Ashlyn Villarreal MD : 1965 BED: DIS: SPEC #: [id number] RECD: 11/13/18 14:36 STATUS: DAINA TONYA #: [id number] COMPA: 11/13/18 00:[address]: Ashlyn Villarreal DEPT: SURGICAL PATHOLOGY RECD BY: Michael Andrews ENTERED: 11/13/18 14:36 SP TYPE: BREAST BX OTHR DR: Dr. Jennifer Colon MD Tissues: Left breast, NOS Procedures: Surgery Specimen Level IV HEADER OPERATION: Left breast biopsy PRE-OP DIAGNOSIS: Left breast lesion TISSUE SUBMITTED: Left breast ISCHEMIC TIME: 2 minutes MICROSCOPIC DIAGNOSIS Left breast lesion, core biopsy: Fibrocystic changes. Negative for atypia or malignancy. SJ:jose alejandro 11/16/18 COMMENT Correlation with clinical, radiologic findings and appropriate follow up are necessary. MICROSCOPIC DESCRIPTION Slides are reviewed. GROSS DESCRIPTION Received is one container labeled with the patient's name and not further designated. The specimen consists of multiple irregular fragments of light thompson-yellow soft tissue that in aggregate measure 2.5 x 1 x 0.1 cm. The specimen is totally submitted in one cassette. / AM:jose alejandro 11/13/18 TC:5 CPT: 95312
--- NOTE | 2018-11-13 09:28 | US_ITS ---
ULTRASOUND GUIDED CORE BIOPSY REASON FOR EXAM: Female, 53 years old. Hypoechoic nodule in the left breast at the 8:00 position of the breast at 5 cm from the nipple. PERTINENT HISTORY: Non-contributory. COMPARISON: Comparison is made with prior ultrasound dated October 30, 2018. TECHNIQUE: (All elements of maximal sterile barrier technique followed, including US elements as applicable) Upon arrival to the breast imaging department the patient's identification was confirmed and the LEFT breast was marked according to time-out protocol. Ultrasound guided core biopsy and clip placement, to include potential risks and complications, was explained in full to the patient. Written and verbal consent were obtained prior to initiation of the procedure. The LEFT breast was prepped and draped in standard sterile fashion and local anesthesia was obtained with 1% buffered lidocaine. A small dermatotomy was then made to introduce the core biopsy needle. Under ultrasound guidance multiple core samples were obtained with a 11 gauge needle and submitted in formalin for pathology. A titanium clip was then deployed into the biopsy cavity under ultrasound guidance. Upon completion of the procedure hemostasis was obtained and sterile dressing was applied. The patient tolerated the entire procedure without immediate complication and was discharged from the breast imaging department in good condition. US/US Breast Biopsy 1st Lesion IMPRESSION: Ultrasound guided core biopsy of a mass in the LEFT breast at 8:00 position breast at 5 sinus from the nipple. without complication. An addendum to this report will be rendered with appropriate recommendations when the pathology report is finalized. Electronically Signed: Logan Mccormack MD at 8:48 EST Tel [phone], Service support ,
--- NOTE | 2018-11-13 10:20 | PCM.OP.BLANK ---
Operative Report Date of Procedure: 11/13/18 Procedure: ultrasound-guided core biopsy Indications: 53 year-old female with hypoechoic nodule at 8:00 in the left breast 5 centimeters from the nipple. Risk benefits were discussed the patient and she elected to proceed with ultrasound guided core biopsy with clip placement Description of procedure: Patient was brought into the ultrasound room in the left breast was marked. A timeout was completed verifying correct patient, procedure, site, specially, prior to beginning procedure. The left breast was prepped and draped in usual sterile fashion and using local anesthesia was obtained with 1% lidocaine with epi. The lesion was located with the ultrasound. Small incision was made with 11 blade to introduced the mammotome through the skin. Under ultrasound guidance multiple core samples were obtained using then 13-gauge mammotome and sent in formalin for pathology. The mammotome mammostar clip was then deployed into the biopsy cavity under ultrasound guidance and a picture was taken. Upon completion procedure hemostasis was obtained and a Steri-Strip and OpSite were placed. Patient was then taken to the mammography suite for clip verification. The clip was verified just posterior to biopsy site on CC view. The patient tolerated the procedure well and was discharged from the breast imaging department good condition. complications: none
== END ==
PROVIDERS: Family Provider Family Medicine; PCP Family Medicine; Referring Provider Surgery; Visit Provider Surgery
DX: N60.12 Diffuse cystic mastopathy of left breast (principal)
CPT/HCPCS: 19083; 88305

== ENCOUNTER → 2019-02-24 10:55 | Outpatient (CLI) | payer BC, SELFPAY ==
[2018-11-03 14:39] VITALS: BMI 26.5
--- NOTE | 2019-02-24 10:56 | US_ITS ---
STUDY: ULTRASOUND BREAST - LEFT REASON FOR EXAM: Female, 53 years old. Follow-up following breast biopsy. Inconclusive pathology results. TECHNIQUE: Axial and longitudinal images of the LEFT breast were performed with a high resolution ultrasound transducer. COMPARISON: Comparison is made with prior sonogram of the left breast dated October 30, 2018. FINDINGS: LEFT Breast: The previously seen hypoechoic nodule at the 8:00 position of the breast at 5 cm from nipple presently appears more cystic as compared to prior study. It remains 6 mm x 5 mm x 4 mm in size. This is located at the 8:00 position of breast at 5 cm from the nipple. US/Breast Limited Unilateral IMPRESSION: The previously seen nodular density at the 8:00 position the breast at 5 cm from the nipple appears to be more cystic at this time. ASSESSMENT CATEGORY: BIRADS Category 2: Benign. A letter regarding these results will be sent to the patient by the facility within 30 days. Electronically Signed: Logan Mccormack, at 11:32 EDT , Service support ,
== END ==
PROVIDERS: Family Provider Family Medicine; PCP Family Medicine; Referring Provider Surgery; Visit Provider Surgery
DX: Z98.890 Other specified postprocedural states (principal)
CPT/HCPCS: 76642

== ENCOUNTER → 2019-07-14 | Outpatient (CLI) | payer BC, SELFPAY ==
[2018-11-03 14:39] VITALS: BMI 26.5
[2019-07-14 12:42] LABS: Anion Gap 2 (5-15); BUN 18 mg/dL (7-18); BUN/Creat Ratio 25.2 RATIO (10-20); Calcium,Total 9.2 mg/dL (8.5-10.1); Chloride 107 mmol/L (98-107); Creatinine, Serum 0.71 mg/dL (0.55-1.02); EST Glomerular Filtration Rate 91 mL/min (>60); Est Glom Filt Rate - Afr Amer 110 mL/min (>60); Glucose 116 mg/dL (74-106); Potassium 3.9 mmol/L (3.5-5.1); Sodium Level 141 mmol/L (136-145)
== END | disposition home or self-care (01) ==
LOC: MFPLAB 10:03
PROVIDERS: Family Provider Family Medicine; PCP Family Medicine; Referring Provider Family Medicine; Visit Provider Family Medicine
DX: I10 Essential (primary) hypertension (principal)
CPT/HCPCS: 36415; 80048

== ENCOUNTER → 2019-11-01 09:43 | Outpatient (CLI) | payer BC, SELFPAY ==
[2018-11-03 14:39] VITALS: BMI 26.5
--- NOTE | 2019-11-01 09:53 | BI_ITS ---
MAMMOGRAPHY - BILATERAL SCREENING REASON FOR EXAM: Female, 54 years old. Routine annual screening examination. PERTINENT HISTORY: Non-contributory. Prior left ultrasound-guided breast biopsy. TECHNIQUE: Digital bilateral breast garry (3D mammographic acquisition) in the CC and MLO projections. 2-D mediolateral oblique (MLO) and craniocaudad (CC) views of both breasts were obtained. CAD: Full Field Digital Mammography with Computer Added Detection was performed. COMPARISON: Comparison is made with prior study dated October 29, 2018 and September 24, 2017. FINDINGS: Breast Composition: The breasts are heterogeneously dense, which may obscure small masses. There are no dominant masses or suspicious calcifications. Small benign-appearing bilateral axillary lymph nodes. No other significant abnormalities are identified. There has been no significant change since the prior study. BI/SCREEN MAMM (CAD) W/GARRY BILAT IMPRESSION: Stable bilateral screening mammogram. Yearly follow-up mammogram recommended. (A) ASSESSMENT CATEGORY: BIRADS Category 2: Benign. A letter regarding these results will be sent to the patient by the facility within 30 days. Approximately 10% of breast cancers are not detected by mammography. A normal mammogram should not delay biopsy of a clinically suspicious abnormality. [id number] Electronically Signed: Logan Mccormack, at 12:30 EST , Service support ,
== END ==
PROVIDERS: Family Provider Family Medicine; PCP Family Medicine; Referring Provider Obstetrics & Gynecology; Visit Provider Obstetrics & Gynecology
DX: Z12.31 Encounter for screening mammogram for malignant neoplasm of breast (principal)
CPT/HCPCS: 77063; 77067

== ENCOUNTER → 2020-01-14 10:13 | Outpatient (CLI) | payer BC, SELFPAY ==
[2019-11-05 09:09] VITALS: BMI 26.5
[2020-01-14 13:04] LABS: Anion Gap 5 (5-15); BUN 13 mg/dL (7-18); BUN/Creat Ratio 18.8 RATIO (10-20); Calcium,Total 9.1 mg/dL (8.5-10.1); Chloride 105 mmol/L (98-107); Creatinine, Serum 0.69 mg/dL (0.55-1.02); EST Glomerular Filtration Rate 94 mL/min (>60); Est Glom Filt Rate - Afr Amer 113 mL/min (>60); Glucose 103 mg/dL (74-106); Potassium 3.9 mmol/L (3.5-5.1); Sodium Level 142 mmol/L (136-145); Thyroid Stim Hormone (TSH) 1.21 uIU/mL (0.358-3.74)
== END ==
PROVIDERS: PCP Family Medicine; Visit Provider Family Medicine
DX: I10 Essential (primary) hypertension (principal); R63.5 Abnormal weight gain
CPT/HCPCS: 36415; 80048; 84443

== ENCOUNTER → 2020-11-02 09:58 | Outpatient (CLI) | payer BC, SELFPAY ==
[2019-11-05 09:09] VITALS: BMI 26.5
--- NOTE | 2020-11-02 10:00 | BI_ITS ---
MAMMOGRAPHY - BILATERAL SCREENING REASON FOR EXAM: Female, 55 years old. Routine annual screening examination. PERTINENT HISTORY: Non-contributory. TECHNIQUE: Digital bilateral breast garry (3D mammographic acquisition) in the CC and MLO projections. 2-D mediolateral oblique (MLO) and craniocaudad (CC) views of both breasts were obtained. CAD: Full Field Digital Mammography with Computer Added Detection was performed. COMPARISON: Comparison is made with prior study dated 11/01/2019 and 10/30/2018. FINDINGS: Breast Composition: The breasts are heterogeneously dense, which may obscure small masses. There are no dominant masses or suspicious calcifications. A tissue clip marker is seen in the deep slightly medial portion of the left breast. No other significant abnormalities are identified. There has been no significant change since the prior study. BI/SCREEN MAMM (CAD) W/GARRY BILAT IMPRESSION: Stable bilateral screening mammogram. Yearly follow-up mammogram recommended. (A) ASSESSMENT CATEGORY: BIRADS Category 2: Benign. A letter regarding these results will be sent to the patient by the facility within 30 days. Approximately 10% of breast cancers are not detected by mammography. A normal mammogram should not delay biopsy of a clinically suspicious abnormality. [id number] Electronically Signed: Logan Mccormack, at 10:53 EST , Service support ,
== END ==
PROVIDERS: PCP Family Medicine; Referring Provider Obstetrics & Gynecology; Visit Provider Obstetrics & Gynecology
DX: Z12.31 Encounter for screening mammogram for malignant neoplasm of breast (principal)
CPT/HCPCS: 77063; 77067

== ENCOUNTER → 2021-01-16 11:03 | Outpatient (CLI) | payer BC, SELFPAY ==
[2020-11-06 08:51] VITALS: BMI 27.0
[2021-01-16 12:54] LABS: Anion Gap 6 (5-15); BUN 16 mg/dL (7-18); BUN/Creat Ratio 25.3 RATIO (10-20); Calcium,Total 9.7 mg/dL (8.5-10.1); Chloride 104 mmol/L (98-107); Creatinine, Serum 0.63 mg/dL (0.55-1.02); EST Glomerular Filtration Rate 103 mL/min (>60); Est Glom Filt Rate - Afr Amer 125 mL/min (>60); Glucose 85 mg/dL (74-106); Potassium 3.8 mmol/L (3.5-5.1); Sodium Level 139 mmol/L (136-145)
== END ==
PROVIDERS: PCP Family Medicine; Referring Provider Family Medicine; Visit Provider Family Medicine
DX: I10 Essential (primary) hypertension (principal)
CPT/HCPCS: 36415; 80048

== ENCOUNTER 2021-01-25 08:53 | Outpatient (RCR) | payer BC, SELFPAY ==
[2020-11-06 08:51] VITALS: BMI 27.0
[2021-01-25] MEDS: COVID-19 VACC, MRNA(PFIZER)/PF 30 MCG/0.3 ML SYRINGE IM (18:30)
[2021-02-15] MEDS: COVID-19 VACC, MRNA(PFIZER)/PF 30 MCG/0.3 ML SYRINGE IM (12:15)
== END 2021-01-25 23:59 ==
LOC: IMMUN 08:53
PROVIDERS: PCP Family Medicine; Referring Provider Family Medicine; Visit Provider Family Medicine
DX: Z23 Encounter for immunization (principal)
CPT/HCPCS: 0001A; 0002A; 91300

== ENCOUNTER → 2021-11-15 08:36 | Outpatient (CLI) | payer BC, SELFPAY ==
--- NOTE | 2021-11-15 08:38 | BI_ITS ---
MAMMOGRAPHY - BILATERAL SCREENING 3-D TOMOSYNTHESIS REASON FOR EXAM: Female, 56 years old. screening for breast cancer PERTINENT HISTORY: No significant family history. TECHNIQUE: 2-D mammograms and 3-D Tomosynthesis of the breast (s) were performed. CAD was performed. COMPARISON: 11/02/2020 FINDINGS: The breast composition is heterogeneously dense that can obscure small breast masses. Scattered benign calcifications are seen. No dense spiculated masses or suspicious microcalcifications are identified. No architectural distortion is identified. There is no skin thickening or retraction. There has been no significant change since the prior study. BI/SCRN MAMM (CAD)W/GARRY BILAT IMPRESSION: No mammographic signs of malignancy. Routine yearly mammograms recommended. ASSESSMENT CATEGORY: BIRADS Category 1: Negative. A letter regarding these results will be sent to the patient by the facility within 30 days. FOLLOW UP RECOMMENDATION: Yearly follow up mammogram recommended. (A) Approximately 10% of breast cancers are not detected by mammography. A normal mammogram should not delay biopsy of a clinically suspicious abnormality. Electronically Signed: [place] Gomez MD at 9:32 EST Tel , Service support ,
== END ==
PROVIDERS: PCP Family Medicine; Referring Provider Nurse Practitioner Women's Health; Visit Provider Nurse Practitioner Women's Health
DX: Z12.31 Encounter for screening mammogram for malignant neoplasm of breast (principal)
CPT/HCPCS: 77063; 77067

== ENCOUNTER 2022-01-22 10:10 | Outpatient (CLI) | payer BC, SELFPAY ==
[2022-01-22 12:40] LABS: Anion Gap 6 (5-15); BUN 16 mg/dL (7-18); BUN/Creat Ratio 23.3 RATIO (10-20); Chloride 107 mmol/L (98-107); Cholesterol 194 mg/dL (200); Creatinine, Serum 0.69 mg/dL (0.55-1.02); EST Glomerular Filtration Rate 94 mL/min (>60); Est Glom Filt Rate - Afr Amer 114 mL/min (>60); Glucose 125 mg/dL (74-106); High Density Lipoprotein 41 mg/dL; Potassium 3.8 mmol/L (3.5-5.1); Sodium Level 140 mmol/L (136-145); Triglycerides 264 mg/dL; Very Low Density Lipoprotein 53 mg/dL (5-40)
== END 2022-01-22 23:59 | disposition home or self-care (01) ==
LOC: MFPLAB 10:11
PROVIDERS: PCP Family Medicine; Referring Provider Family Medicine; Visit Provider Family Medicine
DX: I10 Essential (primary) hypertension (principal)
CPT/HCPCS: 36415; 80048; 80061

== ENCOUNTER → 2022-11-20 | Outpatient (CLI) | payer OTHER, SELFPAY ==
--- NOTE | 2022-11-20 09:08 | BI_ITS ---
MAMMOGRAPHY - BILATERAL SCREENING REASON FOR EXAM: Female, 57 years old. Routine annual screening examination. PERTINENT HISTORY: Non-contributory. History of prior left ultrasound-guided breast biopsy. TECHNIQUE: Digital bilateral breast garry (3D mammographic acquisition) in the CC and MLO projections. 2-D mediolateral oblique (MLO) and craniocaudad (CC) views of both breasts were obtained. CAD: Full Field Digital Mammography with Computer Added Detection was performed. COMPARISON: Comparison is made with prior study dated 11/15/2021 and 11/02/2020. FINDINGS: Breast Composition: The breasts are heterogeneously dense, which may obscure small masses. There are no dominant masses or suspicious calcifications. A tissue clip marker is seen in the deep inferior medial aspect of the left breast. No other significant abnormalities are identified. There has been no significant change since the prior study. BI/SCRN MAMM (CAD)W/GARRY BILAT IMPRESSION: Stable bilateral screening mammogram. Yearly follow-up mammogram recommended. (A) ASSESSMENT CATEGORY: BIRADS Category 2: Benign. A letter regarding these results will be sent to the patient by the facility within 30 days. Approximately 10% of breast cancers are not detected by mammography. A normal mammogram should not delay biopsy of a clinically suspicious abnormality. [id number] Electronically Signed: Logan Mccormack MD at 10:44 EST ,
== END | disposition home or self-care (01) ==
LOC: OPBI 09:07
PROVIDERS: PCP Family Medicine; Visit Provider Nurse Practitioner Women's Health
DX: Z12.31 Encounter for screening mammogram for malignant neoplasm of breast (principal)
CPT/HCPCS: 77063; 77067

== ENCOUNTER → 2023-01-24 | Outpatient (CLI) | payer OTHER, SELFPAY | END | disposition home or self-care (01) | LOC: MFPLAB 11:07 | PROVIDERS: PCP Family Medicine; Referring Provider Family Medicine; Visit Provider Family Medicine | DX: I10 Essential (primary) hypertension (principal); R53.83 Other fatigue; R53.81 Other malaise ==

== ENCOUNTER → 2023-01-27 | Outpatient (CLI) | payer OTHER, SELFPAY ==
[2023-01-27 09:50] LABS: Erythrocyte Sedimentation Rate 3 mm/hr (0-30)
[2023-01-27 09:51] LABS: Absolute Lymphocyte Count 1.89 X10^3/uL (0.83-4.51); Absolute Neutrophil Count 3.4 X10^3/uL (2.0-7.7); Basophil# 0.03 X10^3/uL; Basophil% 0.5 % (0-1); Eosinophils% 1.7 % (0-5); Hematocrit 42.8 % (37-47); Hemoglobin 14.9 g/dL (12.0-15.0); Lymphocyte # 1.89 X10^3/ul (0.83-4.51); Lymphocyte % 32.2 % (19-41); Mean Corp Hgb Conc 34.8 g/dL (32-36); Mean Corpuscular Hgb 30.5 pg (27.0-32.0); Mean Corpuscular Volume 87.5 fL (81-99); Mean Platelet Vol. 8.6 fl (6.2-12.0); Monocyte# 0.43 X10^3/uL; Monocyte% 7.3 % (0-10); NRBC Flagged by Analyzer 0 % (0-5); Neutrophil # 3.39 X10^3/uL (2.7-7.7); Neutrophil % 57.8 % (47-70); Platelet Count 186 K/mm3 (150-450); RBC Distribution Width CV 11.5 % (11.6-14.6); RBC Distribution Width SD 36.9 fl (35.1-43.9); Red Blood Count 4.89 M/mm3 (4.2-5.4); White Blood Count 5.9 K/mm3 (4.4-11.0)
[2023-01-27 10:11] LABS: ALB/GLOB Ratio 1.1 RATIO (0.9-2.4); AST(SGOT) 30 U/L (15-37); Alanine Aminotransfer ALT/SGPT 26 U/L (13-56); Albumin, Serum 3.8 g/dL (3.2-5.0); Alkaline Phosphatase 99 U/L (45-117); Anion Gap 8 (5-15); BUN 18 mg/dL (7-18); BUN/Creat Ratio 25.3 RATIO (10-20); Calcium,Total 9.3 mg/dL (8.5-10.1); Chloride 104 mmol/L (98-107); Cholesterol 208 mg/dL (200); Creatinine, Serum 0.71 mg/dL (0.55-1.02); EST Glomerular Filtration Rate 90 mL/min (>60); Est Glom Filt Rate - Afr Amer 109 mL/min (>60); Globulin 3.6 g/dL (2.2-4.2); Glucose 121 mg/dL (74-106); High Density Lipoprotein 42 mg/dL; Potassium 3.7 mmol/L (3.5-5.1); Protein, Total 7.4 g/dL (6.4-8.2); Sodium Level 140 mmol/L (136-145); Thyroid Stim Hormone (TSH) 2.07 uIU/mL (0.358-3.74); Triglycerides 299 mg/dL; Very Low Density Lipoprotein 60 mg/dL (5-40)
== END | disposition home or self-care (01) ==
PROVIDERS: PCP Family Medicine; Visit Provider Family Medicine
DX: R53.81 Other malaise (principal); I10 Essential (primary) hypertension
CPT/HCPCS: 36415; 80053; 80061; 84443; 85025; 85652

== ENCOUNTER → 2023-11-24 | Outpatient (CLI) | payer OTHER, SELFPAY ==
--- NOTE | 2023-11-24 10:42 | BI_ITS ---
MAMMOGRAPHY - BILATERAL SCREENING REASON FOR EXAM: Female, 58 years old. Routine annual screening examination. PERTINENT HISTORY: Non-contributory. Prior left ultrasound-guided breast biopsy. TECHNIQUE: Digital bilateral breast garry (3D mammographic acquisition) in the CC and MLO projections. 2-D mediolateral oblique (MLO) and craniocaudad (CC) views of both breasts were obtained. CAD: Full Field Digital Mammography with Computer Added Detection was performed. COMPARISON: Comparison is made with prior study dated November 20, 2022 and November 15, 2021. FINDINGS: Breast Composition: The breasts are heterogeneously dense, which may obscure small masses. There are no dominant masses or suspicious calcifications. A tissue clip marker is once again seen in the deep inferior medial aspect of the left breast. No other significant abnormalities are identified. There has been no significant change since the prior study. BI/SCRN MAMM (CAD)W/GARRY BILAT IMPRESSION: Stable bilateral screening mammogram. Yearly follow-up mammogram recommended. (A) ASSESSMENT CATEGORY: BIRADS Category 2: Benign. A letter regarding these results will be sent to the patient by the facility within 30 days. Approximately 10% of breast cancers are not detected by mammography. A normal mammogram should not delay biopsy of a clinically suspicious abnormality. [id number] Electronically Signed: Logan Mccormack MD at 8:53 EST ,
== END | disposition home or self-care (01) ==
LOC: OPBI 10:41
PROVIDERS: PCP Family Medicine; Referring Provider Family Medicine; Visit Provider Family Medicine
DX: Z12.31 Encounter for screening mammogram for malignant neoplasm of breast (principal)
CPT/HCPCS: 77063; 77067

== ENCOUNTER → 2024-01-27 | Outpatient (CLI) | payer OTHER, SELFPAY ==
[2024-01-27 15:47] LABS: Protein, Urine (Random) 6.3 mg/dL (<11.9); Protein:Creat Ratio 226 mg/g CRE (0-200)
[2024-01-27 19:17] LABS: Anion Gap 7 (5-15); BUN 13 mg/dL (7-18); BUN/Creat Ratio 19.1 RATIO (10-20); Calcium,Total 9.2 mg/dL (8.5-10.1); Chloride 104 mmol/L (98-107); Creatinine, Serum 0.68 mg/dL (0.55-1.02); EST Glomerular Filtration Rate 94 mL/min (>60); Est Glom Filt Rate - Afr Amer 114 mL/min (>60); Glucose 126 mg/dL (74-106); Potassium 3.8 mmol/L (3.5-5.1); Sodium Level 139 mmol/L (136-145)
== END | disposition home or self-care (01) ==
LOC: MFPLAB 10:20
PROVIDERS: PCP Family Medicine; Visit Provider Family Medicine
DX: I10 Essential (primary) hypertension (principal)
CPT/HCPCS: 36415; 80048; 82570; 84156

== ENCOUNTER → 2024-11-25 | Outpatient (CLI) | payer OTHER, SELFPAY ==
--- NOTE | 2024-11-25 08:59 | BI_ITS ---
MAMMOGRAPHY - BILATERAL SCREENING REASON FOR EXAM: Female, 59 years old. Routine annual screening examination. PERTINENT HISTORY: Non-contributory. History of prior left ultrasound-guided breast biopsy. TECHNIQUE: Digital bilateral breast garry (3D mammographic acquisition) in the CC and MLO projections. 2-D mediolateral oblique (MLO) and craniocaudad (CC) views of both breasts were obtained. CAD: Full Field Digital Mammography with Computer Added Detection was performed. COMPARISON: Comparison is made with prior study dated November 24, 2023 and November 20, 2022. FINDINGS: Breast Composition: The breasts are heterogeneously dense, which may obscure small masses. I suspect a 7.9 mm x 5.9 mm nodular density in the central lateral aspect of the left breast. The patient will be recalled for additional views including compression spot views and 90 degree lateral view. A tissue clip marker is once again seen in the deep inferior medial aspect of the left breast. No other significant abnormalities are identified. BI/SCRN MAMM (CAD)W/GARRY BILAT IMPRESSION: Questionable 7.9 mm x 5.9 mm nodular density in the left breast as described. The patient will be recalled for additional views as described. Recall Side: Left Breast ASSESSMENT CATEGORY: BIRADS Category 0: Incomplete. Need additional imaging evaluation. A letter regarding these results will be sent to the patient by the facility within 30 days. Approximately 10% of breast cancers are not detected by mammography. A normal mammogram should not delay biopsy of a clinically suspicious abnormality. [id number] Electronically Signed: Logan Mccormack MD at 9:52 EST ,
== END | disposition home or self-care (01) ==
LOC: OPBI 08:57
PROVIDERS: PCP Family Medicine; Referring Provider Family Medicine; Visit Provider Family Medicine
DX: Z12.31 Encounter for screening mammogram for malignant neoplasm of breast (principal)
CPT/HCPCS: 77063; 77067

== ENCOUNTER → 2024-11-26 | Outpatient (CLI) | payer OTHER, SELFPAY ==
--- NOTE | 2024-11-26 09:21 | BI_ITS ---
MAMMOGRAPHY - UNILATERAL DIAGNOSTIC: LEFT BREAST REASON FOR EXAM: Female, 59 years old. Abnormal screening mammogram. PERTINENT HISTORY: Non-contributory. TECHNIQUE: Compression spot views of the left breast in the mediolateral oblique and craniocaudad projections as well as 90 degree lateral view were obtained. CAD: Full Field Digital Mammography with Computer Added Detection was performed. COMPARISON: Comparison is made with prior study dated May 25, 2025. FINDINGS: Breast Composition: The breasts are heterogeneously dense, which may obscure small masses. There are no dominant masses or suspicious calcifications. No other significant abnormalities are identified. BI/DIAG MAMM W/CAD, UNILAT IMPRESSION: Negative unilateral diagnostic mammogram. Yearly followup mammogram recommended. (A) ASSESSMENT CATEGORY: BIRADS Category 2: Benign. A letter regarding these results will be sent to the patient by the facility within 30 days. Approximately 10% of breast cancers are not detected by mammography. A normal mammogram should not delay biopsy of a clinically suspicious abnormality. Electronically Signed: Logan Mccormack MD at 10:59 EST ,
== END | disposition home or self-care (01) ==
LOC: OPBI 09:18
PROVIDERS: PCP Family Medicine; Referring Provider Family Medicine; Visit Provider Family Medicine
DX: R92.8 Other abnormal and inconclusive findings on diagnostic imaging of breast (principal)
CPT/HCPCS: 77065

== ENCOUNTER → 2025-02-01 | Outpatient (CLI) | payer OTHER, SELFPAY ==
[2025-02-01 10:32] LABS: Hematocrit 39.5 % (37-47); Hemoglobin 12.9 g/dL (12.0-15.0); Mean Corp Hgb Conc 32.7 g/dL (32-36); Mean Corpuscular Hgb 27.9 pg (27.0-32.0); Mean Corpuscular Volume 85.5 fL (81-99); Mean Platelet Vol. 8.9 fl (6.2-12.0); Platelet Count 274 K/mm3 (150-450); RBC Distribution Width CV 12.7 % (11.6-14.6); Red Blood Count 4.62 M/mm3 (4.2-5.4)
[2025-02-01 10:58] LABS: ALB/GLOB Ratio 1.4 RATIO (0.9-2.4); AST(SGOT) 32 U/L (<=31); Alanine Aminotransfer ALT/SGPT 23 U/L (<=34); Albumin, Serum 4.3 g/dL (3.5-5.0); Alkaline Phosphatase 126 U/L (35-104); Anion Gap 13 (5-15); BUN 14 mg/dL (4-19); BUN/Creat Ratio 19.3 RATIO (10-20); Calcium,Total 9.7 mg/dL (7.6-11.0); Carbon Dioxide 26.2 mmol/L (21.0-32.0); Chloride 102 mmol/L (98-108); Cholesterol 187 mg/dL (<=200); Creatinine, Serum 0.72 mg/dL (0.70-1.20); EST Glomerular Filtration Rate 97 (>60); Globulin 3.1 g/dL (2.2-4.2); Glucose 147 mg/dL (70-99); High Density Lipoprotein 45 mg/dL; Low Density Lipoprotein Calc. 112 mg/dL; Potassium 4.1 mmol/L (3.3-5.1); Protein, Total 7.4 g/dL (5.9-8.4); Sodium Level 141 mmol/L (133-145); Total Bilirubin 0.44 mg/dL (0.00-1.30); Triglycerides 151 mg/dL; Very Low Density Lipoprotein 30 mg/dL (5-40); cholesterol:hdl ratio screen 4.13
== END | disposition home or self-care (01) ==
LOC: MTLAB 07:08
PROVIDERS: PCP Family Medicine
DX: Z00.00 Encounter for general adult medical examination without abnormal findings (principal)
CPT/HCPCS: 36415; 80053; 80061; 84443; 85027

== ENCOUNTER 2025-03-09 06:00 | Day surgery (SDC) | payer OTHER, SELFPAY ==
[2025-03-09 06:42] VITALS: BP 128/78; PULSE 84; RESP 16; TEMP 36.5; O2SAT 96; BMI 27.3
--- NOTE | 2025-03-09 06:48 | PCM.PRE.AN2 ---
ASA Classification* ASA Classification ASA Classification: 2 Assessment & Plan Anesthesia* Anesthesia Assessment Anesthesia Assessment: Discussed sedation and/or anesthesia options, risks, benefits, and alternatives with patient/parents/legal guardian/POA. Questions invited. The patient/parents/legal guardian/POA seems to understand and agrees to proceed with anesthesia plan. Reviewed the physical assessment, medical history, allergy history and patient home medications list prior to surgery/procedure/anesthetic and documented any changes. Performed airway and anesthesia risk assessments. Anesthesia Type Anesthesia Type: MAC Anesthesia Focused Assessment* Airway Assessment Mouth opens: >3 cm Mallampati Score: II Focused Labs Anesthesia Preop lab: CBC WBC 6.0 K/mm3 (4.4-11.0) 02/01/25 07:11 02/01/25 RBC 4.62 M/mm3 (4.2-5.4) 02/01/25 07:11 02/01/25 Hgb 12.9 g/dL (12.0-15.0) 02/01/25 07:11 02/01/25 Hct 39.5 % (37-47) 02/01/25 07:11 02/01/25 Plt Count 274 K/mm3 (150-450) 02/01/25 07:11 02/01/25 CHEMISTRY Potassium 4.1 mmol/L (3.3-5.1) 02/01/25 07:11 02/01/25 Sodium 141 mmol/L (133-145) 02/01/25 07:11 02/01/25 BUN 14 mg/dL (4-19) 02/01/25 07:11 02/01/25 Creatinine 0.72 mg/dL (0.70-1.20) 02/01/25 07:11 02/01/25 Glucose 147 mg/dL (70-99) H 02/01/25 07:11 02/01/25 TSH 2.870 uIU/mL (0.300-4.200) 02/01/25 07:11 02/01/25 COAG Pre-Assessment Diagnosis/Proposed Procedure Planned Operative Procedure(s): COLONOSCOPY Anesthesia History 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 When Was Last Pacemaker Check QUESTION #4 FULL TEXT: You/Your Family Experience fever (hyperthermia) with Anesthesia Last Oral Intake Last Oral intake: Last Oral Intake NPO since Meds taken in AM with sips of water? Meds patient instructed to take am of surgery PONV PONV - tungsten refiner: PONV - tungsten refiner Female Yes 03/03/25 14:18 HX of Motion Sickness No 03/03/25 14:18 HX of N/V After Surgery No 03/03/25 14:18 Non-Smoker Yes 03/03/25 14:18 Duration of Surgery greater No 03/03/25 14:18 than 60 minutes Number of Risk Factors 2 03/03/25 14:18 PONV Score Moderate Risk 03/03/25 14:18 Height & Weight Height & Weight: Anesthesia: Height & Weight Height 5 ft 4 in 02/04/25 13:52 Respiratory Assessment Respiratory Assessment - tungsten refiner: Respiratory Tract Infection Hx - tungsten refiner Hx Respiratory Tract Infection No 03/03/25 14:18 STOP Sleep Apnea STOP Sleep Apnea - tungsten refiner: STOP Sleep Apnea - tungsten refiner Hx Hypertension Yes: RECENT MED INCREASE IN 03/03/25 14:18 DOSAGE Hx Sleep Apnea Yes: NON-COMPLIANT 03/03/25 14:18 CPAP No 03/03/25 14:18 BIPAP No 03/03/25 14:18 Do you snore loudly (louder than talking or can be heard Do you often feel tired/ fatigued/ sleepy during daytime? Has anyone observed you stop breathing during sleep? STOP Results Positive 03/03/25 14:18 QUESTION #5 FULL TEXT : Do you snore loudly (louder than talking or can be heard through closed doors)? 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 Specify any problems Hx of Preganancy in last 3 No 03/03/25 14:18 Months Nurse Filling Out Transfusion VCHRISTIN 03/03/25 14:18 & Questions: Date: 03/03/25 03/03/25 14:18 Time: 14:19 03/03/25 14:18 Patient unable to answer at this time (ie. confused, unrespo /Reproduction History /Reproductive History - tungsten refiner: /Reproductive Hx- tungsten refiner Hx Now No 03/03/25 14:18 Gestational Age (in weeks): EDC: Hx Hx Para Hx Section SAB No 03/03/25 14:18 Active Medications Active Medications: Current Medications Generic Name Dose Route Start Last Admin Trade Name Freq PRN Reason Stop Dose Admin Lactated Ringer's 1,000 mls @ 15 mls/hr 03/09/25 06:15 IV .Q48H ROSEANNE PFSH Medical History Loss of hearing Wears glasses Post-menopausal Alcohol use Kidney stones Gastric reflux Non-smoker Sleep apnea History of echocardiogram uterine ablation History of headache Hypertension Home Medications ?Medication ?Instructions ?Recorded ?Last Taken ?Type multivitamin 1 tab PO DAILY 11/06/20 03/06/25 History mv-min-vit C-ascorb 2 tab PO DAILY 11/06/20 03/06/25 History An-Cwt-Mlo-herb #124 333 mg-1.7 mg chewable tablet (Airborne (ascorbate sodium)) glucosamine sulfate 500 mg tablet 500 mg PO DAILY 11/19/22 03/06/25 History (Glucosamine) loratadine 10 mg tablet (Allergy 10 mg PO DAILY 11/19/22 03/06/25 History Relief (loratadine)) lisinopril 20 mg tablet 40 mg PO QDAY 03/21/25 04/22/25 History Allergy/AdvReac Type Severity Reaction Status Date / Time latex Allergy Rash Verified 03/09/25 06:41 Family History Mother Heart disease Osteoporosis Lung cancer Father Heart disease Grandmother Colon cancer Surgical History Hx of cystoscopy Hx of colonoscopy H/O umbilical hernia repair H/O ventral hernia repair History of hysterectomy Hx of cholecystectomy delivery delivered Social History Smoking Status: Never smoker alcohol intake: current details: social substance use type: does not use caffeine: Yes what type of physical activity do you participate in: walking seatbelt use: always do you feel safe at home: Yes additional social history: [employer] Patient does not currently work Review of Systems (Anesthesia) ROS Narrative System reviewed and no additional complaints, except as documented.
--- NOTE | 2025-03-09 07:16 | HP.PCM_ITS ---
History and Physical Date of Admission: 03/09/25 Date of Service: 02/04/25 MR#: [id number] Acct: [id number] Name: NAHOMY DILLON Rep #: [id number] : 1965 Provider: Dr. Ashlyn Villarreal MD Age/Sex: 59/F Location: [facility] Status: Signed Intake Vital Signs 12/15/2410:23 02/04/2513:52 Height 5 ft 4.5 in 5 ft 4 in Weight: 166 lb BMI 28.5 BP 146/83 H Blood Pressure Location Rt brachial Position Sitting Respiration 17 Pulse 87 Pulse Source Monitor Pulse Oximetry (%) 98 Oxygen Delivery Method room air Intake Visit Reasons: BLOOD IN STOOL Chief Complaint: blood in stool Allergies latex Allergy (Verified 02/04/25 13:53) Rash Medications ?Medication ?Instructions ?Recorded ?Confirmed ?Type multivitamin 1 tab PO DAILY 11/06/20 02/04/25 History mv-min-vit C-ascorb tab PO 11/06/20 02/04/25 History Hd-Zrs-Ijk-herb #124 333 mg-1.7 mg chewable tablet (Airborne (ascorbate sodium)) glucosamine sulfate 500 mg tablet 500 mg PO DAILY 11/19/22 02/04/25 Histor y (Glucosamine) loratadine 10 mg tablet (Allergy 10 mg PO DAILY 11/19/22 02/04/25 History Relief (loratadine)) lisinopril 20 mg tablet 20 mg PO QDAY 02/04/25 02/04/25 History PFSH Medical History History of headache Hypertension uterine ablation Surgical History H/O umbilical hernia repair H/O ventral hernia repair History of hysterectomy Hx of cholecystectomy delivery delivered Family History Mother Heart disease Osteoporosis Lung cancerFather Heart diseaseGrandmother Colon cancer Social History Smoking Status: Never smoker alcohol intake: current details: social substance use type: does not use caffeine: Yes what type of physical activity do you participate in: walking seatbelt use: always do you feel safe at home: Yes additional social history: [employer] Patient does not currently work HPI HPI HPI: 59-year-old female presents due to bright red blood around rectum and due for a screening colonoscopy. Patient states that she has had a small amount of bright red per rectum occasionally with wiping. Patient has bowel movements daily. Patient does have occasional right lower quadrant abdominal pain that comes and goes not related to anything specific. Patient's paternal grandmother did have colon cancer?patient is unsure if her dad ever had a colonoscopy. Patient recently started on omeprazole 20 mg [id number] for reflux and states that her symptoms have all been controlled that was in the fall of last year. Patient has never had an EGD. Patient last colonoscopy was in 2017 told return in 7 to 10 years due to tortuous colon. ROS General General: Yes fatigue; No weight change, appetite, colon cancer or breast cancer HEENT HEENT: No difficulty swallowing, eye injury, eye surgery, swollen glands or hoarseness Endo Endocrine: No thyroid disease, diabetes mellitus, thyroid cancer, Hair loss, heat intolerance or cold intolerance Skin Skin: No rash or changing moles Musc Musculoskeletal: No back problems, arthritis, rheumatoid arthritis, gout or joint pain Cardio Cardiovascular: Yes high blood pressure; No murmur, pacemaker, heart disease, atrial fibrillation, heart attack, heart stent, palpitations, shortness of breath with exertion or chest pain Psych Psychiatric: No depression, anxiety or hearing voices Resp Respiratory: No shortness of breath, No sleep apnea, No cough, No COPD, No asthma, No emphysema and No wheezing Gastro Gastrointestinal: Yes abdominal pain, No nausea or vomiting, No diarrhea, No constipation, Yes blood in stool, Yes acid reflux, No hemorrhoids, No ulcers, No gallbladder problem and No black,tarry stools Logan Hematologic: No blood thinners, No blood disorders, No bleeding, No anemia and No blood clots Neuro Neurologic: No numbness and No tingling Exam Const General: cooperative, healthy appearing, comfortable and no acute distress [facility] Head: normocephalic and atraumatic Neck Neck: supple Resp Effort & Inspection: normal respiratory effort Cardio Rate: regular rate GI Inspection: non-distended Palpation: soft, no hernias and nontender Skin General: no rashes or lesions noted Neuro General: CN's II-XI intact bilaterally Extrem General: normal to inspection Psych Mental Status: mental status grossly normal Attitude: cooperative Assessment and Plan Assessment and Plan (1) Blood in stool: Status: Acute (2) Screening for colon cancer: Status: Acute Plan Patient is having occasional blood in her stool however it is time for her screening colonoscopy will plan to schedule screening colonoscopy. I have discussed the above with the patient. I have offered the patient colonoscopy for evaluation. I have explained the risks/benefits of the procedure and described the procedure. I have discussed the risks with the patient, including but not limited to: infection, bleeding, perforation of the GI tract requiring emergency surgery, inability to complete the procedure, injury to any internal organs, complications of anesthesia, etc. - the patient understands and agrees to proceed. I have answered all the patient's questions to the patient's satisfaction and the patient has no further questions. The patient has been given instructions for the colon cleansing preparation. 1 day of clears, MiraLAX Dulcolax prep Ashlyn Villarreal M.D. Pager: [phone] [facility] [address] [place] [address], [facility], [address] [place] [address] Office: [phone] Coding Level of Care Code Off vis,new,level 3 Diagnoses Blood in stool K92.1 Screening for colon cancer Z12.11 02/05/25 0927 <Electronically signed by Ashlyn Villarreal MD> Date Ashlyn Villarreal MD
--- NOTE | 2025-03-09 07:19 | H&P.OPEN ---
HPI - General General Date of Admission: 03/09/25 HPI Narrative NAHOMY DILLON, is a 59 F who presents for screening colonoscopy. Patient's last colonoscopy was in 2017 had a tortuous colon told to return in 7 years. Patient denies any changes since her last office visit. 02/04/2025 office visit HPI HPI: 59-year-old female presents due to bright red blood around rectum and due for a screening colonoscopy. Patient states that she has had a small amount of bright red per rectum occasionally with wiping. Patient has bowel movements daily. Patient does have occasional right lower quadrant abdominal pain that comes and goes not related to anything specific. Patient's paternal grandmother did have colon cancer?patient is unsure if her dad ever had a colonoscopy. Patient recently started on omeprazole 20 mg [id number] for reflux and states that her symptoms have all been controlled that was in the fall of last year. Patient has never had an EGD. Patient last colonoscopy was in 2017 told return in 7 to 10 years due to tortuous colon. [facility] Medical History Loss of hearing Wears glasses Post-menopausal Alcohol use Kidney stones Gastric reflux Non-smoker Sleep apnea History of echocardiogram uterine ablation History of headache Hypertension Home Medications ?Medication ?Instructions ?Recorded ?Last Taken ?Type multivitamin 1 tab PO DAILY 11/06/20 03/06/25 History mv-min-vit C-ascorb 2 tab PO DAILY 11/06/20 03/06/25 History Pq-Caa-Lsn-herb #124 333 mg-1.7 mg chewable tablet (Airborne (ascorbate sodium)) glucosamine sulfate 500 mg tablet 500 mg PO DAILY 11/19/22 03/06/25 History (Glucosamine) loratadine 10 mg tablet (Allergy 10 mg PO DAILY 11/19/22 03/06/25 History Relief (loratadine)) lisinopril 20 mg tablet 40 mg PO QDAY 02/04/25 03/08/25 History Allergy/AdvReac Type Severity Reaction Status Date / Time latex Allergy Rash Verified 03/09/25 06:41 Family History Mother Heart disease Osteoporosis Lung cancer Father Heart disease Grandmother Colon cancer Surgical History Hx of cystoscopy Hx of colonoscopy H/O umbilical hernia repair H/O ventral hernia repair History of hysterectomy Hx of cholecystectomy delivery delivered Social History Smoking Status: Never smoker alcohol intake: current details: social substance use type: does not use caffeine: Yes what type of physical activity do you participate in: walking seatbelt use: always do you feel safe at home: Yes additional social history: [employer] Patient does not currently work Past Medical/Surgical History Planned Operation Planned Operative Procedure(s): COLONOSCOPY S.O.S: No Previous Hospitalizations/Surgeries HX Hospitalizations: No HX of Surgeries: LAPAROSCOPIC CHOLECYSTECTOMY 1993 UTERINE ABLATION HYSTERECTOMY 2006 LAP HERNIA REPAIR/VENTRAL OPEN UMBILICAL HERNIA REPAIR WITH MESH VENTRAL HERNIA REPAIR WITH COMPONENT SEPARATION 2013 REMOVAL KIDNEY STONE RIGHT 2012 Any Problems With Anesthesia: No You/Your Family Experience Fever (Hyperthermia) With Anes: No Cholinesterase deficiency: No Cardiovascular Hx Chest Pain within Last 2 months: No Hx of Irregular Heartbeat and/or Afib: No Hx Heart Attack: No Hx Congestive Heart Failure: No Hx Rheumatic Fever: No Hx Hypertension: Yes (RECENT MED INCREASE IN DOSAGE) Hx Internal Defibrillator: No Hx Pacemaker: No Hx Cardiac Catheterization: No Hx Cardiac Surgery/Stents/Etc.: No Hx Stress Test: No (ECHO 2014) Hx Pain in Legs when Walking/Leg Cramps: No Respiratory Chronic Cough: No HX of Shortness of Breath: No Hoarseness: No Hx Chronic Obstructive Pulmonary Disease (COPD): No Hx Asthma: No Hx Emphysema: No Hx Sleep Apnea: Yes (NON-COMPLIANT) CPAP: No BIPAP: No Hx Respiratory Tract Infection/Cold (presently): No Result (for STOP score): Positive Hx Smoking: No Smoking Status: Never smoker Gastrointestinal Hx Gastrointestinal Disorders: No Hx Gastrointestinal Bleed: No Hx Ulcer: No Hx Hiatal Hernia: No Difficulty Chewing/Swallowing: No Special diet followed at home: No Hx Unplanned Weight Loss of 20#: No HX Unplanned Weight Gain of 20#: No Neurological Hx Seizures: No HX Syncope/Blackout Spells/Unconsciousness: No Hx Transient Ischemic Attacks (TIA): No Hx Multiple Sclerosis: No Hx Parkinson's Disease: No Hx Head/Neck Injury: No Hx Headaches: No Hx Back Injury/Pain: No Recent Onset of Speech Difficulty: No Restless Legs: No Does patient have nerve stimulator: No Blood Disorder Hx Leukemia: No Bleeding Tendencies: No Hx Deep Vein Thrombosis: No Hx High Cholesterol: No Blood Transmitted Disease: No Hx Hepatitis: No Hx Cirrhosis: No Hx Anemia: No Hx Blood Disorders: No Reproduction : No Is Patient Lactating: No Hx Hysterectomy: Yes Are You Post Menopause: Yes Genitourinary Hx Renal Disease: Yes (HX STONES) Hx Dialysis: No Musculoskeletal Hx Arthritis: No Hx Rheumatoid Arthritis: No Hx Gout: No Recent Onset of an Orthopedic Problem: No Endocrine Hx Diabetes: No Thyroid Disease: No Hx Steroid Therapy: No Psycho/Social Hx Substance Use: No Hx Alcohol Use: Yes (OCCAS) Hx Anxiety: No Hx Depression: No Mental Illness: No Hx Dementia: No Miscellaneous Hx Cancer: No Recent Exposure to Contagious Disease: No Hx of C-Diff: No Any Loose Teeth: No Allergies latex Allergy (Verified 03/09/25 06:41) Rash Discharge Is Pt Admitted From a Correction, or a Detention: No After D/C, Where Do you Plan to Go: Return Home Vital Signs Vital Signs Vital Signs: 03/09/25 06:42 03/09/25 06:42 Temperature 97.7 F L Temperature Source Temporal Pulse Rate 84 Respiratory Rate 16 Respiratory Pattern Normal Blood Pressure 128/78 H Blood Pressure Mean 94 Blood Pressure Source Monitor Blood Pressure Position Semi-Fowlers Blood Pressure Location Right Arm Pulse Ox 96 Oxygen Delivery Method Room Air Weight Weight: 159 lb 2.78 oz Body Mass Index (BMI) 27.3 Physical Exam Const alert, oriented x3 and no apparent distress HEENT normocephalic and head/scalp atraumatic Resp normal respiratory effort Cardio regular rate GI soft to palpation and non-tender; Negative for non-distended Palpation: Negative for guarding Extremity no clubbing, cyanosis or edema Skin no rashes or lesions noted Neuro CN's II-XII intact bilaterally Psych mental status grossly normal Assessment & Plan Assessment/Plan (1) Screening for colon cancer: Surgery Risks - Colonoscopy I discussed with the patient the risks of the procedure: Yes Risks Include but are not Limited To: Risks include but are not limited to: Bleeding, perforation requiring further surgery, inability to complete colonoscopy requiring barium enema.
--- NOTE | 2025-03-09 07:30 | COLBX_PTH ---
PATIENT: NAHOMY DILLON LOC: EN U#:[id number] AGE/SX: 59/F ROOM: RE03/09/[address]: Dr. Ashlyn Villarreal MD : 1965 BED: DIS: 03/09/2025 SPEC #: [id number] RECD: 03/09/25 14:14 STATUS: DAINA REMlalory #: [id number] COMPA: 03/09/25 07:[address]: Ashlyn Villarreal DEPT: SURGICAL PATHOLOGY RECD BY: Paco Ward ENTERED: 03/09/25 14:14 SP TYPE: COLON BX OTHR DR: Dr. Anshul Bear MD Tissues: A - Ileum, NOS Procedures: Surgery Specimen Level IV HEADER OPERATION: Colonoscopy PRE-OP DIAGNOSIS: Screening for colon cancer, rule out for Crohn's and ulcerative colitis TISSUE SUBMITTED: A- Terminal ileum MICROSCOPIC DIAGNOSIS A. Small bowel, terminal ileum, biopsy: * Normal villous morphology with acute inflammation, nonspecific. * No granulomas or dysplasia seen. MICROSCOPIC DESCRIPTION Slides are reviewed. GROSS DESCRIPTION A. Received in formalin in a container labeled with the patient's name, date of , and terminal ileum ulcer r/o Crohn's and UC is a 0.4 x 0.3 x 0.3 cm fragment of thompson-pink mucosal tissue. Submitted in toto in A1. [facility] 03/09/2025 CPT:33329
[2025-03-09 08:00] VITALS: BP 105/68; BP 128/78; PULSE 68; RESP 16; TEMP 36.7; O2SAT 99
--- NOTE | 2025-03-09 08:13 | PCM.POST.ANE ---
Anesthesia: Postop Eval I Current Vital Signs Temperature: 98.2 F Pulse Rate: 72 Blood Pressure: 105/68 Respiratory Rate: 16 Pulse Ox: 100 Oxygen Delivery Method: Room Air Assessment Airway patent: Yes Spontaneous unlabored respirations: Yes Mental status: Awake and Calm nausea: No Vomiting: No Anesthesia Complication: No Fluid Hydration Crystalloid volume administer (ml): 700 Total IV fluid infused: 700 Progress Note Anesthesia document: Postop Eval 1 completed: Yes
[2025-03-09 08:14] VITALS: BP 105/68; PULSE 72; RESP 16; TEMP 36.8; O2SAT 100
[2025-03-09 08:15] VITALS: BP 116/65; BP 128/78; PULSE 68; RESP 16; O2SAT 98
--- NOTE | 2025-03-09 08:15 | OP.CCLET_ITS ---
03/09/2025 Catarino Bear [address] [place] [address] Re : Colonoscopy procedure for Doreen Lee Dear Dr. Bear This procedure was performed on Sunday, March 09, 2025. My impressions and recommendations are as follows: Impressions : - The entire examined colon is normal on direct and retroflexion views. - Multiple ulcers in the terminal ileum. Biopsied. Recommendations : - Discharge patient to home. - Resume previous diet. - Continue present medications. - Await pathology results. - Repeat colonoscopy in 5-10 years for surveillance based on pathology results. My findings are described in the full procedure note, which is enclosed. If I can be of further assistance, please feel free to contact me at Doctor phone number(s): , Work: . Sincerely, MD Ashlyn Chan MD 03/09/2025 8:14:59 AM This report has been signed electronically.
--- NOTE | 2025-03-09 08:15 | OP.COLON_ITS ---
Patient Name: Doreen Lee Procedure Date: 03/09/2025 7:38 AM Date of : 1965 Age: 59 Procedure: Colonoscopy Indications: Screening for colorectal malignant neoplasm Providers: Ashlyn Villarreal MD Referring MD: Catarino Bear Medicines: Monitored Anesthesia Care Patient Profile: This is a 59 year old female. Last Colonoscopy: several years ago. Complications: No immediate complications. Procedure: Pre-Anesthesia Assessment: - Prior to the procedure, a History and Physical was performed, and patient medications and allergies were reviewed. The patient's tolerance of previous anesthesia was also reviewed. The risks and benefits of the procedure and the sedation options and risks were discussed with the patient. All questions were answered, and informed consent was obtained. Prior Anticoagulants: The patient has taken no anticoagulant or antiplatelet agents. ASA Grade Assessment: Per anesthesia. After reviewing the risks and benefits, the patient was deemed in satisfactory condition to undergo the procedure. After I obtained informed consent, the scope was passed under direct vision. Throughout the procedure, the patient's blood pressure, pulse, and oxygen saturations were monitored continuously. The Colonoscope was introduced through the anus and advanced to the terminal ileum. The colonoscopy was performed without difficulty. The patient tolerated the procedure well. The quality of the bowel preparation was good. Scope In: 7:48:12 AM Scope Withdrawal Time 0 hours 12 minutes 39 seconds Scope Out: 8:06:28 AM Total Procedure Duration Time 0 hours 18 minutes 16 seconds Findings: The perianal and digital rectal examinations were normal. The entire examined colon appeared normal on direct and retroflexion views. The terminal ileum contained multiple three mm ulcers. No bleeding was present. Biopsies were taken with a cold forceps for histology. Impression: - The entire examined colon is normal on direct and retroflexion views. - Multiple ulcers in the terminal ileum. Biopsied. Recommendation: - Discharge patient to home. - Resume previous diet. - Continue present medications. - Await pathology results. - Repeat colonoscopy in 5-10 years for surveillance based on pathology results. Procedure Code(s): --- Professional --- 80113, PT, Colonoscopy, flexible; with biopsy, single or multiple Diagnosis Code(s): --- Professional --- Z12.11, Encounter for screening for malignant neoplasm of colon K63.3, Ulcer of intestine CPT copyright 2021 [employer]. All rights reserved. The codes documented in this report are preliminary and upon fuel cell battery technician review may be revised to meet current compliance requirements. MD Ashlyn Chan MD 03/09/2025 8:14:59 AM This report has been signed electronically. Number of Addenda: 0 Note Initiated On: 03/09/2025 7:38 AM
[2025-03-09 08:20] VITALS: BP 113/59; BP 128/78; PULSE 65; RESP 16; TEMP 36.5; O2SAT 100
--- NOTE | 2025-03-09 08:29 | PCM.POSTANE2 ---
Anesthesia Postop Eval I Sum Postop Eval Completion status Anesthesia document: Postop Eval 1 completed: Yes Anesthesia Postop Eval I Summary Anesthesia Postop Eval I Summary: Anesthesia Postop Eval I: Assessment Summary Airway patent Yes 03/09/25 08:14 [email or web address] Spontaneous unlabored Yes 03/09/25 08:14 [email or web address] respirations Mental status Awake,Calm 03/09/25 08:14 [email or web address] nausea No 03/09/25 08:14 [email or web address] Vomiting No 03/09/25 08:14 [email or web address] Anesthesia Postop Eval I: Fluid Summary Crystalloid volume administer 700 03/09/25 08:14 [email or web address] (ml) Colloids volume administered ( ml) Blood Product volume administered (ml) Total IV fluid infused 700 03/09/25 08:14 [email or web address] Anesthesia Postop Eval I: Summary Notes Anesthesia Complication No 03/09/25 08:14 [email or web address] Anesthesia Complication Comment: Post-operative progress note Anesthesia: Postop Eval II Evaluation Mental status: Awake Pain Level: 0 nausea: No Vomiting: No
[2025-03-09 08:41] VITALS: BP 128/78
== END 2025-03-09 08:42 | disposition home or self-care (01) ==
LOC: EN 06:04 → AC 06:05
PROVIDERS: PCP Family Medicine; Referring Provider Family Medicine; Visit Provider Surgery
PROC: 0DJD8ZZ Inspection of Lower Intestinal Tract, Via Natural or Artificial Opening Endoscopic (ICD-10-PCS; CPT 45378; principal; 2025-03-09 07:25)
DX: Z12.11 Encounter for screening for malignant neoplasm of colon (principal); Z90.710 Acquired absence of both cervix and uterus; I10 Essential (primary) hypertension; Z80.0 Family history of malignant neoplasm of digestive organs; K21.9 Gastro-esophageal reflux disease without esophagitis; Z79.899 Other long term (current) drug therapy; Z90.49 Acquired absence of other specified parts of digestive tract; K63.3 Ulcer of intestine
CPT/HCPCS: 45380; 88305; J2405